=== PATIENT | female | born 1985 | race Caucasian/White ===

== ENCOUNTER → 2016-10-21 | Outpatient (CLI) | payer OTHER ==
--- NOTE | 2016-10-21 11:11 | XR ---
Right shoulder HISTORY: Injury and pain Multiplanar multisequence imaging obtained through the right shoulder. No comparisons Bone mineralization, joint spaces and alignment are maintained. Right lung apex as visualized is norm al. IMPRESSION: No fracture or dislocation.
== END | disposition home or self-care (01) ==
LOC: RADXRMAIN 10:51
PROVIDERS: ATTEND Emergency Medicine
DX: S43.401A Unspecified sprain of right shoulder joint, initial encounter (principal)

== ENCOUNTER → 2020-08-27 | Outpatient (CLI) | payer BC | END | disposition home or self-care (01) | LOC: LABWHC1 15:40 | PROVIDERS: ATTEND Obstetrics & Gynecology | DX: O20.0 Threatened abortion (principal) | CPT/HCPCS: 36415; 84702 ==

== ENCOUNTER 2020-09-09 05:40 | Day surgery (SDC) | payer BC ==
[2020-09-04 08:51] VITALS: BMI 38.0
--- NOTE | 2020-09-04 18:25 | P.HPOB ---
History of Present Illness H&P Date: 09/04/20 Chief Complaint: Missed This patient is a pleasant 35-year-old 2 para 1 female estimated gestational age 9 weeks by dates who presented to me initially for care and ultrasound showed a empty sac with a yolk sac. Patient's beta-hCG at that time was 20,000+. Repeat ultrasound approximately 1 week later showed a persistent gestational sac but no yolk sac at this time consistent with a missed . Patient also has had some spotting. Discussed options with the patient including expectant management versus suction D&C for treatment. Patient is requesting suction D&C at this time. has otherwise been uncomplicated with the exception of tobacco use and advanced maternal age. Review of Systems Genitourinary: Reports Past Medical History Past Medical History: No Reported History History of Any Multi-Drug Resistant Organisms: None Reported Past Surgical History: Section Past Anesthesia/Blood Transfusion Reactions: Family History of Problems w/ Anesthesia Additional Past Anesthesia/Blood Transfusion Reaction / Comment(s): "Grandma cannot have anesthesia, caused breathing issues, has alot of allergies." Past Psychological History: Anxiety Smoking Status: Current every day smoker Past Alcohol Use History: None Reported Additional Past Alcohol Use History / Comment(s): Has been smoking for 18 yrs, 1PPD. Past Drug Use History: None Reported - Past Family History Mother Family Medical History: No Reported History Medications and Allergies Home Medications Medication Instructions Recorded Confirmed Type No Known Home Medications 09/04/20 09/04/20 History Allergies Allergy/AdvReac Type Severity Reaction Status Date / Time Sulfa (Sulfonamide Allergy Rash/Hives Verified 09/04/20 08:54 Antibiotics) Exam Intake and Output 09/04/20 09/04/20 09/04/20 06:59 14:59 22:59 Other: Weight 113.398 kg - OBG Physical Exam Abdomen: bowel sounds normal, no diffuse tenderness, no bruit present, no guarding noted, no hepatomegaly, no splenomegaly, no mass Vulva: both: normal Vagina: normal moisture, no discharge Cervix: no lesion, no discharge Uterus: enlarged (Uterus is approximate 6 weeks' size), normal contour Results Serial ultrasound shows an gestational sac without pole or cardiac activity. Patient's blood type is O+. Assessment and Plan Assessment: This is a pleasant 35-year-old 2 para 1 female with a missed approximately 6-7 weeks size. Patient requested suction D&C for treatment at this time. Beverly and I have discussed the surgery and risks including risks of infection, bleeding, possible uterine perforation. All the patient's questions have been answered and a written consent is obtained. (1) Missed Status: Acute Code(s): O02.1 - MISSED SNOMED Code(s): 11315519
[~2020-09-09 05:40] MED LIST: Pre Op ABX Message 1 EACH MISC MISCELLANE ONE
[2020-09-09] MEDS ORDERED: ONDANSETRON 4 MG/2 ML VIAL IVP ONE (05:55)
[2020-09-09] MEDS ORDERED: LACTATED RINGERS 1,000 ML IV SCH (05:55)
[2020-09-09] MEDS ORDERED: HYDROmorphone 0.5 MG/0.5 ML SYRINGE IVP PRN (05:55)
[2020-09-09] MEDS ORDERED: MIDAZOLAM 2 MG/2 ML VIAL IV PRN (05:55)
[2020-09-09] MEDS ORDERED: DEXAMETHASONE SOD PHOSPHATE 4 MG/ML 1 ML VIAL IV ONE (05:55)
[2020-09-09] MEDS ORDERED: LIDOCAINE 1% (10MG/ML) FOR IV START INTRADERMA PRN (05:55)
[2020-09-09 06:14] VITALS: RESP 16
[2020-09-09] MEDS ORDERED: PROPOFOL 10 MG/ML 20 ML VIAL IV ONE (06:57)
[2020-09-09] MEDS ORDERED: MIDAZOLAM 2 MG/2 ML VIAL ONE (06:57)
[2020-09-09] MEDS ORDERED: SUCCINYLCHOLINE CHLORIDE 100 MG/5 ML SYR IV ONE (06:57)
[2020-09-09] MEDS ORDERED: LIDOCAINE 1% INJ 10MG/ML (20 ML MDV) ONE (06:57)
[2020-09-09] MEDS ORDERED: KETOROLAC 15 MG/ML 1 ML VIAL ONE (06:57)
[2020-09-09] MEDS ORDERED: fentaNYL (PF) 50 MCG/ML 2 ML AMP ONE (06:57)
--- NOTE | 2020-09-09 07:26 | P.OP ---
Date of Procedure: 09/09/20 Preoperative Diagnosis: Missed Postoperative Diagnosis: Same Procedure(s) Performed: Suction D&C Anesthesia: JAVIER Surgeon: Luiz Knight Estimated Blood Loss (ml): 25 Urine output (ml): 25 Pathology: other (() Condition: stable Disposition: PACU Indications for Procedure: Please see dictated H&P for intimate details of this patient's admission. Brief summary this is a pleasant 35-year-old female with known missed who is scheduled for suction D&C this morning. Patient did have some bleeding over this weekend and passed some large clots but is uncertain if she passed tissue or not. Her bleeding had subsided. I did discuss with her the possibility that she passes the entire versus residual tissue and she wished to proceed with suction D&C either way. She and I did discuss the surgery and risks and risks of infection, bleeding, possible uterine perforation. All the patient's questions been answered written consent is obtained. Operative Findings: Patient had a small amount of retained tissue possibly consistent with just decidual tissue. Description of Procedure: This patient is taken to the operating room where she is laid in supine position. She subsequently undergoes general endotracheal anesthesia without incident. With an adequate level of anesthesia she's placed in dorsal lithotomy position. She has a vaginal perineal prep and drape. Examination under anesthesia shows a mid position uterus of normal size. Weighted speculum placed in posterior vagina. The bladder is drained for 25 mL of clear urine. This done I then grabbed the anterior lip of the cervix with an Allis clamp and gently dilate the cervix. The cervix easily dilated to allow a 9 curved suction curette into the uterine cavity. Suction is applied and a small amount of tissue is removed. This is consistent with some retained tissue however she may have had a complete . Multiple passes until no further tissue was noted. A gentle but thorough 4 quadrant curettage is done as well again no further tissue was noted. The Allis clamp was then removed. The weighted speculum was removed. Patient is awakened from anesthesia and taken to the recovery room in satisfactory condition. All counts correct 3. There are no complications.
[2020-09-09 07:31] VITALS: TEMP 97.1
[2020-09-09 08:18] VITALS: BP 131/81; PULSE 91
== END 2020-09-09 08:37 | disposition home or self-care (01) ==
LOC: OR 05:40
PROVIDERS: ATTEND Obstetrics & Gynecology
DX: O02.1 Missed abortion (principal); F41.9 Anxiety disorder, unspecified; F17.210 Nicotine dependence, cigarettes, uncomplicated; Z88.2 Allergy status to sulfonamides; Z98.891 History of uterine scar from previous surgery
CPT/HCPCS: 59820; 86900; 86901; 88305; 86850; J2250; J1100; J2405; J2001; J3010; J1885; J0330; J2704

== ENCOUNTER 2020-11-07 05:47 | Day surgery (SDC) | payer BC ==
[2020-11-04 16:02] VITALS: BMI 38.0
--- NOTE | 2020-11-06 12:41 | P.HPOB ---
History of Present Illness H&P Date: 11/06/20 Chief Complaint: High-grade cervical dysplasia This patient is a pleasant 35-year-old 2 para 1 female who initially presented to me for but subsequent a did have a miscarriage. In the process of evaluating her she had a Pap smear that showed possible high-grade dysplasia. Colposcopy confirmed REVA 3 (high-grade) dysplasia of the ectocervix. Patient now presents for LEEP excision of the ectocervix endocervix for treatment. Past Medical History Past Medical History: No Reported History History of Any Multi-Drug Resistant Organisms: None Reported Past Surgical History: Section Additional Past Surgical History / Comment(s): D & C Past Anesthesia/Blood Transfusion Reactions: Family History of Problems w/ Anesthesia Additional Past Anesthesia/Blood Transfusion Reaction / Comment(s): "Grandma cannot have anesthesia, caused breathing issues, has alot of allergies." Past Psychological History: No Psychological Hx Reported Smoking Status: Current every day smoker Past Alcohol Use History: None Reported Past Drug Use History: None Reported - Past Family History Mother Family Medical History: No Reported History Medications and Allergies Home Medications Medication Instructions Recorded Confirmed Type No Known Home Medications 11/04/20 11/04/20 History Allergies Allergy/AdvReac Type Severity Reaction Status Date / Time Sulfa (Sulfonamide Allergy Rash/Hives Verified 11/04/20 15:58 Antibiotics) Exam - OBG Physical Exam Abdomen: bowel sounds normal, no diffuse tenderness, no bruit present, no guarding noted, no hepatomegaly, no splenomegaly, no mass Vulva: both: normal Vagina: normal moisture, no discharge Cervix: no lesion, no discharge Uterus: normal size, normal contour Results Colposcopy demonstrates REVA-3 of the ectocervix Assessment and Plan Assessment: This is a pleasant 35-year-old 2 para 1 female with high-grade cervical dysplasia who presents for colposcopy with LEEP excision of the ectocervix endocervix. Patient and I have discussed this procedure and risks including risks of infection, bleeding, possible cervical incompetence in future loss. All the patient's questions are answered and a written consent is obtained. (1) High grade squamous intraepithelial lesion of cervix Status: Acute Code(s): R87.613 - HIGH GRADE INTREPITH LESION CYTO SMR CRVX (HGSIL) SNOMED Code(s): 331724063
[2020-11-07] MEDS ORDERED: DEXAMETHASONE SOD PHOSPHATE 4 MG/ML 1 ML VIAL IV ONE (06:06)
[2020-11-07] MEDS ORDERED: LACTATED RINGERS 1,000 ML IV SCH (06:06)
[2020-11-07] MEDS ORDERED: SCOPOLAMINE 1.5MG/72HR PATCH TRANSDERM ONE (06:06)
[2020-11-07] MEDS ORDERED: ONDANSETRON 4 MG/2 ML VIAL IVP ONE (06:06)
[2020-11-07] MEDS ORDERED: LIDOCAINE 1% (10MG/ML) FOR IV START INTRADERMA PRN (06:06)
[2020-11-07] MEDS ORDERED: MIDAZOLAM 2 MG/2 ML VIAL ONE (06:53)
[2020-11-07] MEDS ORDERED: PROPOFOL 10 MG/ML 20 ML VIAL IV ONE (06:53)
[2020-11-07] MEDS ORDERED: LIDOCAINE 1% INJ 10MG/ML (20 ML MDV) ONE (06:53)
[2020-11-07] MEDS ORDERED: KETOROLAC 15 MG/ML 1 ML VIAL ONE (06:53)
[2020-11-07] MEDS ORDERED: fentaNYL (PF) 50 MCG/ML 2 ML AMP ONE (06:53)
[2020-11-07] MEDS ORDERED: HYDROmorphone 0.5 MG/0.5 ML SYRINGE IVP PRN (07:00)
[2020-11-07] MEDS ORDERED: IODINE/POTASS IOD (LUGOLS) BOTTLE TOPICAL ONE (07:15)
[2020-11-07] MEDS ORDERED: FERRIC SUBSULFATE (MONSELS) JAR TOPICAL ONE (07:15)
[2020-11-07 07:33] VITALS: TEMP 08.3
--- NOTE | 2020-11-07 07:34 | P.OP ---
Date of Procedure: 11/07/20 Preoperative Diagnosis: High-grade cervical dysplasia Postoperative Diagnosis: Same Procedure(s) Performed: LEEP of the ectocervix and endocervix Anesthesia: other (LMA) Surgeon: Luiz Knight Estimated Blood Loss (ml): 5 Urine output (ml): 20 Pathology: other (Ectocervix and endocervix) Condition: stable Disposition: PACU Indications for Procedure: Please see dictated H&P for intimate details of this patient's admission. Brief summary this is a pleasant 35-year-old patient who had a high-grade Pap smear and colposcopy confirmed REVA 3 of the ectocervix. Patient I discussed treatment elected to proceed with LEEP excision the ectocervix and endocervix. Due to her wanting to have a baby in the near future time I will do my best to do a shallow excision. I did discuss the risks of this procedure including infection, bleeding, possible cervical incompetence in future loss. All the patient's questions are answered and a written consent is obtained. Operative Findings: This patient had acetowhite changes of the ectocervix is demarcated in the office Description of Procedure: This patient is taken to the operating room where she is laid in the supine position. She subsequent undergoes general anesthesia without incident. With an adequate level of anesthesia she's placed in dorsal lithotomy position. She has a vaginal perineal prep and drape. The laser speculum was placed into the vagina and the cervix is visualized. Bladder is drained for 20 mL of clear urine. Colposcopy is performed and the area of abnormality is demarcated. Using the large LEEP loop I make one pass and excise the entire transformation zone. Again this is a shallow excisions best as possible without compromising removed. A second pass is made of the endocervix with the small LEEP loop. C auterization is then done of the Endo and ectocervical margins and excellent hemostasis is noted Monsel solution is added for additional hemostasis. This done the procedure is ended. The counts are correct 3. There are no complications. Patient is awakened from anesthesia and taken to the recovery room in satisfactory condition.
[2020-11-07 07:48] VITALS: RESP 18
[2020-11-07] MEDS ORDERED: LACTATED RINGERS 1,000 ML IV ONE (08:02)
[2020-11-07 08:35] VITALS: BP 142/87; PULSE 79
== END 2020-11-07 08:50 | disposition home or self-care (01) ==
LOC: OR 05:47
PROVIDERS: ATTEND Obstetrics & Gynecology
DX: N87.1 Moderate cervical dysplasia (principal); N87.9 Dysplasia of cervix uteri, unspecified; K08.89 Other specified disorders of teeth and supporting structures; E66.9 Obesity, unspecified; F17.210 Nicotine dependence, cigarettes, uncomplicated; Z88.2 Allergy status to sulfonamides; Z87.59 Personal history of other complications of pregnancy, childbirth and the puerperium; Z98.890 Other specified postprocedural states; Z84.89 Family history of other specified conditions; Z68.37 Body mass index [BMI] 37.0-37.9, adult
CPT/HCPCS: 81025; 88305; 88307; 57461; J2250; J1100; J2405; J2001; J3010; J1885; J2704

== ENCOUNTER 2022-02-24 05:44 | Inpatient (IN) | payer BC ==
--- NOTE | 2022-02-23 07:46 | P.HPOB ---
History of Present Illness H&P Date: 02/23/22 Chief Complaint: Repeat CS and tubal ligation. This patient is a pleasant 36 yr female EDC 03/03/[birth year]22 estimated gestational age 39 0/7 weeks who presents to L&D for repeat section and also requesting permanent sterilization. has been complicated by insulin- dependent gestational diabetes and advanced for maternal age. Patient had normal genetic testing and Level III ultrasound. Diabetes has been managed by [facility]. Previous section, desires repeat plus tubal ligation. Review of Systems Genitourinary: Reports Menstruation: Reports amenorrhea Past Medical History Past Medical History: No Reported History History of Any Multi-Drug Resistant Organisms: None Reported Past Surgical History: Section Additional Past Surgical History / Comment(s): D & C Past Anesthesia/Blood Transfusion Reactions: Family History of Problems w/ Anesthesia Additional Past Anesthesia/Blood Transfusion Reaction / Comment(s): "Grandma cannot have anesthesia, caused breathing issues, has alot of allergies." Past Psychological History: No Psychological Hx Reported Smoking Status: Current every day smoker Past Alcohol Use History: None Reported Past Drug Use History: None Reported - Past Family History Mother Family Medical History: No Reported History Medications and Allergies Allergies Allergy/AdvReac Type Severity Reaction Status Date / Time Sulfa (Sulfonamide Allergy Rash/Hives Verified 11/04/20 15:58 Antibiotics) Exam - OBG Physical Exam Abdomen: bowel sounds normal, no diffuse tenderness, no bruit present, no guarding noted, no hepatomegaly, no splenomegaly, no mass Vulva: both: normal Vagina: normal moisture, no discharge Cervix: no lesion, no discharge Uterus: enlarged Adnexa: both: normal Anus/Rectum: normal perianal skin, no rectal mass, no hemorrhoids, heme negative Results labs: O positive, Rubella Immune, [id number] negative, glucola 253, Materni T21 46X,X, GBS negative. Normal Level III and growth ultrasounds. Last ultrasound was breech. Assessment and Plan Assessment: This is a pleasant 36 yr female 39 weeks with insulin dependent GDM and elderly with previous section and requesting permanent sterilization. Plan is repeat section and bilateral partial salpingectomy. Patient and I have discussed this surgery and risks: infection, bleeding, possible injury to bowel, bladder, vessels, and/or other organs. Risk of DVT/PE. We discussed that a tubal ligation is permanent, however failure rate of ~<02/1000 procedures done. All of her questions were answered and a written consent obtained. (1) 39 weeks gestation of Status: Acute Code(s): Z3A.39 - 39 WEEKS GESTATION OF SNOMED Code(s): 49522375 (2) Insulin dependent gestational diabetes mellitus, antepartum Status: Acute Code(s): AAA6368 - SNOMED Code(s): 19198658 (3) Elderly multigravida Status: Acute Code(s): O09.529 - SUPERVISION OF ELDERLY MULTIGRAVIDA, UNSPECIFIED TRIMESTER SNOMED Code(s): 975220990 (4) Previous delivery affecting Status: Acute Code(s): O34.219 - MATERNAL CARE FOR UNSP TYPE SCAR FROM PREVIOUS DEL SNOMED Code(s): 730240165 (5) Family planning Status: Acute Code(s): Z30.09 - ENCOUNTER FOR OTH GENERAL CNSL AND ADVICE ON CONTRACEPTION SNOMED Code(s): 432462613
[2022-02-24] MEDS ORDERED: CITRIC ACID-SODIUM CITRATE 15 ML CUP PO ONE (06:09)
[2022-02-24] MEDS ORDERED: LACTATED RINGERS 1,000 ML IV ONE (06:09)
[2022-02-24] MEDS ORDERED: LACTATED RINGERS 1,000 ML IV SCH (06:09)
[2022-02-24 06:31] LABS: Glucose,Whole Blood 111 mg/dL (75-99)
[2022-02-24 06:42] LABS: Basophils # (A) 0.1 k/uL (0-0.2); Basophils % (A) 0 %; Eosinophils # (A) 0.1 k/uL (0-0.7); Eosinophils % (A) 1 %; HCT 39.8 % (34.0-46.0); HGB 12.6 gm/dL (11.4-16.0); Lymphocytes # (A) 2.8 k/uL (1.0-4.8); Lymphocytes % (A) 20 %; MCH 28.5 pg (25.0-35.0); MCHC 31.6 g/dL (31.0-37.0); MCV 90.1 fL (80.0-100.0); Mean Platelet Volume 10.5; Monocytes # (A) 0.7 k/uL (0-1.0); Monocytes % (A) 5 %; Neutrophils # (A) 10.6 k/uL (1.3-7.7); Neutrophils % (A) 74 %; Platelet Count 186 k/uL (150-450); RBC 4.41 m/uL (3.80-5.40); RDW 14.3 % (11.5-15.5); WBC 14.4 k/uL (3.8-10.6)
[2022-02-24] MEDS ORDERED: PHENYLEPHRINE-0.9% NACL SYG 1,000 MCG/10 ML SYRINGE ONE (07:42)
[2022-02-24] MEDS ORDERED: NALBUPHINE 10 MG/ML (1 ML AMP) ONE (07:42)
[2022-02-24] MEDS ORDERED: ONDANSETRON 4 MG/2 ML VIAL ONE (07:42)
[2022-02-24] MEDS ORDERED: ePHEDrine 50 MG/ML 1 ML VIAL ONE (07:42)
[2022-02-24] MEDS ORDERED: KETOROLAC 15 MG/ML 1 ML VIAL ONE (07:42)
[2022-02-24] MEDS ORDERED: MORPHINE SULFATE (PF) 0.3 MG/0.3 ML SYR ONE (07:42)
[2022-02-24] MEDS ORDERED: OXYTOCIN 30 UNITS/500 ML NS BAG IV ONE (07:42)
--- NOTE | 2022-02-24 08:37 | P.OP ---
Date of Procedure: 02/24/22 Preoperative Diagnosis: #1: 39-0/7 week intrauterine . #2: Insulin-dependent gestational diabetes. #3: Elderly multigravida #4: Previous section desires repeat. #5: Multi parity desires permanent sterilization Postoperative Diagnosis: Same Procedure(s) Performed: Repeat low transverse section and bilateral partial salpingectomy. Anesthesia: spinal Surgeon: Luiz Knight Outside Upholsterer #1: Jess Hung Estimated Blood Loss (ml): 600 Pathology: other (Placenta and bilateral fallopian tube segments) Disposition: floor Indications for Procedure: Please see dictated H&P for intimate details of this patient's admission. Brief summary this pleasant 36-year-old 3 para 1 female 39-0/7 weeks gestation admitted to labor and delivery for repeat section and also requesting permanent sterilization. Patient understands this surgery and risks and risks of infection, bleeding, possible injury bowel, bladder, vessels, and/or other organs. She also understands a tubal ligation is considered permanent. All the patient's questions are answered and a written consent is obtained. Operative Findings: This is a vigorous viable female infant Apgars 9 and 9 delivery time is 0800 hours. Description of Procedure: This patient has a Collins catheter placed to straight drain. She is subsequently taken to the operating room where she sat up and spinal anesthetic is administered without incident. With an adequate level of anesthesia she has abdominal prep and drape. Scalpels and taken Pfannenstiel incision is made through the previous incision. A second scalpel is taken down the fascia and the fascia scored with a knife. Fascial incision extended bilaterally using the Bravo scissors. Fascia is then dissected off the rectus muscles sharply. Rectus muscles are the peritoneum identified and entered sharply. Peritoneal incision extended superior and inferior without difficulty. Bladder blade is then placed. Bladder peritoneum was taken sharply off the lower uterine segment. Scalpels taken low transverse uterine incision is made. Using a hemostat I into the uterine cavity bluntly is loss of copious amount of clear fluid. is in the vertex presentation With fundal pressure we deliver the 's head. Mouth and nares are bulb suctioned. There is no evidence of a nuchal cord. With more fundal pressure we have delivery the rest this infant's body. This is a vigorous viable female infant Apgars are 9 and 9 delivery time is 0800 hours. After delivery of the the umbilical cord is doubly clamped and cut appears to be trivascular. The placenta is then manually extracted intact. Uterus is then externalized uterine incision demarcated with Martinez clamps. Uterine incision is closed using 0 Vicryl running locked fashion 2 layers. Excellent hemostasis is noted. Then turned my attention to the left fallopian tube and I grasped approximately 4 cm from the cornual insertion. Using Bovie cautery a small window is made to the mesial salpinx. Using a 2-0 silk I doubly ligate a 1-2 cm segment of the tube. This is excised and handed off to pathology. Cauterization is done of the tubal ends. Risks low but of bleeding at the distal portion of additional stitches placed and excellent hemostasis is noted. Then turned my attention to the right fallopian tube and using a similar technique similar results. With this done excess fluid is removed from the pelvis uterus placed back into the abdomen. Final inspection of the uterine incision and the fallopian tube filled to be hemostatic. Parietal peritoneum was closed using 0 Vicryl. Rectus muscles reapproximated Vicryl interrupted fashion. Fascial incision is closed using 0 PDS. Fascial incision is intact and hemostatic. Subcutaneous tissues and closed using a 3-0 Vicryl. Skin is and closed using angelia. All counts are correct 3. There are no complications. Infant and mother stable delivery room.
[2022-02-24] MEDS ORDERED: ONDANSETRON 4 MG/2 ML VIAL IVP PRN (09:31)
[2022-02-24] MEDS ORDERED: LANOLIN CREAM 5 GM TUBE TOPICAL PRN (09:31)
[2022-02-24] MEDS ORDERED: ZOLPIDEM 5 MG TAB PO PRN (09:31)
[2022-02-24] MEDS ORDERED: diphenhydrAMINE 50 MG/ML 1 ML VIAL IVP PRN (09:31)
[2022-02-24] MEDS ORDERED: SIMETHICONE 80 MG CHEWABLE PO PRN (09:31)
[2022-02-24] MEDS ORDERED: NALOXONE 0.4 MG/ML 1 ML VIAL IV PRN (09:31)
[2022-02-24] MEDS ORDERED: OXYTOCIN 30 UNITS/500 ML NS 30 UNIT in SALINE 1 500ML.BAG IV SCH (09:31)
[2022-02-24] MEDS ORDERED: METOCLOPRAMIDE 5 MG/ML 2 ML VIAL IVP PRN (09:31)
[2022-02-24] MEDS: ACETAMINOPHEN TAB 500 MG TAB PO SCH ×2 (09:58→23:01)
[2022-02-24] MEDS: SENNOSIDES-DOCUSATE SODIUM 1 EACH TAB PO SCH ×2 (09:59→21:15)
[2022-02-24] MEDS: KETOROLAC 15 MG/ML 1 ML VIAL IVP SCH (13:57)
[2022-02-24] MEDS: IBUPROFEN 600 MG TAB PO SCH ×2 (17:23→23:01)
[2022-02-25] MEDS: KETOROLAC 15 MG/ML 1 ML VIAL IVP SCH ×2 (03:19→07:27)
[2022-02-25] MEDS: IBUPROFEN 600 MG TAB PO SCH ×5 (04:46→20:23)
[2022-02-25] MEDS: diphenhydrAMINE 25 MG CAP PO PRN ×3 (05:50→18:45)
[2022-02-25] MEDS: ACETAMINOPHEN TAB 500 MG TAB PO SCH ×5 (05:50→18:44)
--- NOTE | 2022-02-25 06:13 | P.PNOBGPC ---
Subjective - Subjective Patient reports: Reports appetite normal, Reports voiding normally, Reports pain well controlled, Reports ambulating normally : doing well Objective - Vital Signs Latest vital signs: Vital Signs Temp Pulse Resp BP Pulse Ox 02/25/22 03:31 98.5 F 88 16 122/82 02/24/22 23:56 98.2 F 97 16 118/71 96 02/24/22 23:55 83 19 02/24/22 21:55 97.8 F 83 19 123/67 95 02/24/22 20:00 98.6 F 81 15 101/55 95 02/24/22 16:00 97.6 F 74 16 117/66 98 02/24/22 11:00 97.8 F 91 16 116/58 98 02/24/22 10:32 97.8 F 76 16 109/61 97 02/24/22 10:01 93 16 96/52 95 02/24/22 09:32 85 17 103/51 95 02/24/22 09:31 96 02/24/22 09:17 85 17 114/55 96 02/24/22 09:02 82 17 100/58 96 02/24/22 08:47 89 17 108/61 96 02/24/22 08:32 97.8 F 75 17 80/40 96 02/24/22 06:58 97.9 F 103 H 16 97 Intake and Output 02/24/22 02/24/22 02/25/22 14:59 22:59 06:59 Intake Total 700 480 Output Total 850 300 Balance -150 180 Intake: IV 700 Oral 480 Output: Urine 100 300 Uretheral (Collins) 300 Estimated Blood Loss 600 Output, Quantitative 150 Blood Loss Other: Voiding Method Indwelling Catheter Indwelling Catheter # Voids 1 # Bowel Movements 150 # Emeses 1 - Exam Lungs: bilateral: normal Chest: Normal S1, Normal S2 Extremities: Present: normal Abdomen: Present: normal appearance, soft. Absent: distention, tenderness Incision: Present: normal, dry, intact Uterus: Present: normal, firm - Labs Labs: Abnormal Lab Results - Last 24 Hours (Table) 02/24/22 02/24/22 02/24/22 Range/Units 06:23 06:30 06:30 WBC 14.4 H (3.8-10.6) k/uL Neutrophils # 10.6 H (1.3-7.7) k/uL POC Glucose (mg/dL) 111 H (75-99) mg/dL Hemoglobin A1c 6.3 H (0.0-6.0) % Assessment and Plan Assessment: Postoperative day #1. Patient is resting without complaints. Vital signs are stable she is afebrile. Uterus is firm nontender and her incision is intact and dry. My impression this is a normal course. Plan is to allow the patient to shower, check CBC, encourage ambulation, continue routine postoperative care (1) 39 weeks gestation of Current Visit: No Status: Acute Code(s): Z3A.39 - 39 WEEKS GESTATION OF SNOMED Code(s): 32610615 (2) Insulin dependent gestational diabetes mellitus, antepartum Current Visit: No Status: Acute Code(s): APV7359 - SNOMED Code(s): 83992023 (3) Elderly multigravida Current Visit: No Status: Acute Code(s): O09.529 - SUPERVISION OF ELDERLY MULTIGRAVIDA, UNSPECIFIED TRIMESTER SNOMED Code(s): 257844994 (4) Previous delivery affecting Current Visit: No Status: Acute Code(s): O34.219 - MATERNAL CARE FOR UNSP TYPE SCAR FROM PREVIOUS DEL SNOMED Code(s): 113202001 (5) Family planning Current Visit: No Status: Acute Code(s): Z30.09 - ENCOUNTER FOR OTH GENERAL CNSL AND ADVICE ON CONTRACEPTION SNOMED Code(s): 173817214
--- NOTE | 2022-02-25 07:36 | P.PN ---
Progress Note - Text Progress Note Date: 02/25/22 This is a 36-year-old lady postop day #1 status post with spinal anesthesia and Duramorph. The patient's pain is well controlled however she feels mild itching. She denies any paresthesia or weakness in the lower extremities. She denies any headache. The patient was able to ambulate with no problems.
[2022-02-25 07:38] LABS: Basophils # (A) 0.1 k/uL (0-0.2); Basophils % (A) 1 %; Eosinophils # (A) 0.2 k/uL (0-0.7); Eosinophils % (A) 1 %; HCT 35.7 % (34.0-46.0); HGB 11.2 gm/dL (11.4-16.0); Lymphocytes # (A) 1.9 k/uL (1.0-4.8); Lymphocytes % (A) 16 %; MCH 28.4 pg (25.0-35.0); MCHC 31.3 g/dL (31.0-37.0); MCV 90.7 fL (80.0-100.0); Mean Platelet Volume 10.4; Monocytes # (A) 0.7 k/uL (0-1.0); Monocytes % (A) 6 %; Neutrophils % (A) 75 %; Platelet Count 166 k/uL (150-450); RBC 3.94 m/uL (3.80-5.40); RDW 14.2 % (11.5-15.5); WBC 11.9 k/uL (3.8-10.6)
[2022-02-25] MEDS: SENNOSIDES-DOCUSATE SODIUM 1 EACH TAB PO SCH ×2 (08:43→20:25)
[2022-02-26] MEDS: ACETAMINOPHEN TAB 500 MG TAB PO SCH ×2 (00:27→07:29)
[2022-02-26] MEDS: IBUPROFEN 600 MG TAB PO SCH ×2 (02:26→09:39)
--- NOTE | 2022-02-26 05:59 | P.PNOBGPC ---
Subjective - Subjective Patient reports: Reports appetite normal, Reports voiding normally, Reports pain well controlled, Reports ambulating normally : doing well Objective - Vital Signs Latest vital signs: Vital Signs Temp Pulse Resp BP Pulse Ox 02/26/22 00:00 97.9 F 76 16 120/78 98 02/25/22 15:00 98.6 F 79 20 99/60 97 02/25/22 08:00 98.3 F 89 16 113/67 Intake and Output 02/25/22 02/25/22 02/26/22 14:59 22:59 06:59 Other: # Voids 1 1 - Exam Lungs: bilateral: normal Chest: Normal S1, Normal S2 Extremities: Present: normal Abdomen: Present: normal appearance, soft. Absent: distention, tenderness Incision: Present: normal, dry, intact Uterus: Present: normal, firm - Labs Labs: Abnormal Lab Results - Last 24 Hours (Table) 02/25/22 Range/Units 07:22 WBC 11.9 H (3.8-10.6) k/uL Hgb 11.2 L (11.4-16.0) gm/dL Neutrophils # 9.0 H (1.3-7.7) k/uL Assessment and Plan Assessment: Postoperative day #2. Patient is resting without complaints. Vital signs are stable she's afebrile. Uterus is firm nontender and she is having normal lochia. Her incision is intact and dry. CBC yesterday was normal. Patient's tolerating regular diet, urinating, ambulating without difficulty. My impression is that this is a normal postoperative course. Plan is to continue routine postoperative care discharge home later today. Of note patient's hemoglobin A1c was 6.3 and we did discuss about the need for outpatient follow- up of her gestational diabetes possible pre-gestational. (1) 39 weeks gestation of Current Visit: No Status: Acute Code(s): Z3A.39 - 39 WEEKS GESTATION OF SNOMED Code(s): 89038700 (2) Insulin dependent gestational diabetes mellitus, antepartum Current Visit: No Status: Acute Code(s): USE9278 - SNOMED Code(s): 68383388 (3) Elderly multigravida Current Visit: No Status: Acute Code(s): O09.529 - SUPERVISION OF ELDERLY MULTIGRAVIDA, UNSPECIFIED TRIMESTER SNOMED Code(s): 433558982 (4) Previous delivery affecting Current Visit: No Status: Acute Code(s): O34.219 - MATERNAL CARE FOR UNSP TYPE SCAR FROM PREVIOUS DEL SNOMED Code(s): 603019111 (5) Family planning Current Visit: No Status: Acute Code(s): Z30.09 - ENCOUNTER FOR OTH GENERAL CNSL AND ADVICE ON CONTRACEPTION SNOMED Code(s): 235749766
--- NOTE | 2022-02-26 06:04 | P.DS ---
Providers Date of admission: 02/24/22 05:44 Expected date of discharge: 02/26/22 Attending physician: Luiz Knight Primary care physician: Stated None - Discharge Diagnosis(es) (1) 39 weeks gestation of Current Visit: No Status: Acute (2) Insulin dependent gestational diabetes mellitus, antepartum Current Visit: No Status: Acute (3) Elderly multigravida Current Visit: No Status: Acute (4) Previous delivery affecting Current Visit: No Status: Acute (5) Family planning Current Visit: No Status: Acute Hospital Course: Please see dictated H&P and operative note on this patient's admission and delivery. In brief summary this is a 36-year-old 3 para 1 female 39-0/7 weeks gestation who is admitted to labor and delivery for elective repeat section and permanent sterilization secondary to previous section and gestational diabetes. Patient is admitted she undergoes repeat low transverse section for viable female infant. Please see dictated operative note. Postoperatively the patient does well and on postoperative and 2 spell to be stable for discharge home follow up with me in 1-2 weeks for an incision check. Procedures: Repeat low transverse section and bilateral partial salpingectomy Plan - Discharge Summary New Discharge Prescriptions: New Ibuprofen [Motrin] 600 mg PO Q6H #40 tab No Action Aspirin 81 mg PO DAILY Pnv No.95/Ferrous Fum/Folic AC [ Multivitamin Tablet] 1 each PO DAILY Insulin Detemir [Levemir Flextouch Pen] 30 unit SQ DAILY Insulin Aspart [NovoLOG Flexpen] See Protocol SQ AC-BID Discharge Medication List Aspirin 81 mg PO DAILY 02/24/22 [History] Insulin Aspart [NovoLOG Flexpen] See Protocol SQ AC-BID 02/24/22 [History] Insulin Detemir [Levemir Flextouch Pen] 30 unit SQ DAILY 02/24/22 [History] Pnv No.95/Ferrous Fum/Folic AC [ Multivitamin Tablet] 1 each PO DAILY 02/24/22 [History] Ibuprofen [Motrin] 600 mg PO Q6H #40 tab 02/26/22 [Rx] Follow up Appointment(s)/Referral(s): Luiz Knight MD [STAFF PHYSICIAN] - 04/08/22 10:45 am (Please see me for an incision check on March 10 @1:30pm) Patient Instructions/Handouts: (DC) Activity/Diet/Wound Care/Special Instructions: No heavy lifting or strenuous activities for 6 weeks. Please call if any fever, chills, excessive vaginal bleeding, and/or abdominal pain. Discharge Disposition: HOME SELF-CARE
[2022-02-26] MEDS: SENNOSIDES-DOCUSATE SODIUM 1 EACH TAB PO SCH (07:30)
[2022-02-26 08:41] VITALS: BP 131/80; PULSE 88; RESP 18; TEMP 98
== END 2022-02-26 10:25 | disposition home or self-care (01) | DRG 785 ==
LOC: 4FBP 05:44
PROVIDERS: ADMIT Obstetrics & Gynecology; ATTEND Obstetrics & Gynecology
PROC: 0UB70ZZ Excision of Bilateral Fallopian Tubes, Open Approach (ICD-10-PCS; 2022-02-24)
PROC: 10D00Z1 Extraction of Products of Conception, Low, Open Approach (ICD-10-PCS; principal; 2022-02-24 08:00)
DX: O24.424 Gestational diabetes mellitus in childbirth, insulin controlled (principal); F17.200 Nicotine dependence, unspecified, uncomplicated; O34.211 Maternal care for low transverse scar from previous cesarean delivery; Z30.2 Encounter for sterilization; O99.334 Smoking (tobacco) complicating childbirth; Z37.0 Single live birth; Z3A.39 39 weeks gestation of pregnancy
CPT/HCPCS: 83036; 85025; 86850; 86900; 86901; 88302; 88307

== ENCOUNTER 2022-03-26 00:09 | Emergency (ER) | payer BC ==
[2022-03-26 00:28] VITALS: BP 117/65; PULSE 82; RESP 16; TEMP 98.2
[2022-03-26] MEDS ORDERED: SODIUM CHLORIDE 0.9% 500 ML 500 ML IV STA (01:30)
--- NOTE | 2022-03-26 01:35 | ED ---
Abdominal Pain HPI - General Chief Complaint: Abdominal Pain Stated Complaint: Abd Pain Time Seen by Provider: 03/26/22 01:09 Source: patient Mode of arrival: ambulatory Limitations: no limitations - History of Present Illness Initial Comments: This patient is a 36-year-old woman approximately 1 month , who presents with complaint of right upper quadrant abdominal pain. She states that it came on around 10 PM tonight while she was watching TV. She had eaten pizza approximately 2 and half hours earlier. The patient states that the pain r adiates to the back, is constant aching and is severe. She has not noted worsening or relieving factors. MD Complaint: abdominal pain -: hour(s) Location: RUQ Radiation: back Migration to: no migration Severity: severe Quality: aching Consistency: constant Improves With: nothing Worsens With: nothing Associated Symptoms: nausea - Related Data Home Medications Medication Instructions Recorded Confirmed Aspirin 81 mg PO DAILY 02/24/22 02/24/22 Insulin Aspart [NovoLOG Flexpen] See Protocol SQ AC-BID 02/24/22 02/24/22 Insulin Detemir [Levemir Flextouch 30 unit SQ DAILY 02/24/22 02/24/22 Pen] Pnv No.95/Ferrous Fum/Folic AC 1 each PO DAILY 02/24/22 02/24/22 [ Multivitamin Tablet] Previous Rx's Medication Instructions Recorded Ibuprofen [Motrin] 600 mg PO Q6H #40 tab 02/26/22 Allergies Allergy/AdvReac Type Severity Reaction Status Date / Time Sulfa (Sulfonamide Allergy Rash/Hives Verified 03/26/22 00:28 Antibiotics) Review of Systems ROS Statement: Those systems with pertinent positive or pertinent negative responses have been documented in the HPI. ROS Other: All systems not noted in ROS Statement are negative. Constitutional: Denies: fever, chills Respiratory: Denies: cough, dyspnea Cardiovascular: Denies: chest pain, palpitations, edema Gastrointestinal: Reports: abdominal pain, nausea. Denies: vomiting, diarrhea, constipation, melena, hematochezia Genitourinary: Denies: urgency, dysuria, hematuria Musculoskeletal: Denies: back pain Skin: Denies: rash Neurological: Denies: headache, weakness Past Medical History Past Medical History: No Reported History History of Any Multi-Drug Resistant Organisms: None Reported Past Surgical History: Section Additional Past Surgical History / Comment(s): D & C Past Anesthesia/Blood Transfusion Reactions: Family History of Problems w/ Anesthesia Additional Past Anesthesia/Blood Transfusion Reaction / Comment(s): "Grandma cannot have anesthesia, caused breathing issues, has alot of allergies." Past Psychological History: No Psychological Hx Reported Smoking Status: Current every day smoker Past Alcohol Use History: None Reported Past Drug Use History: None Reported - Past Family History Mother Family Medical History: No Reported History General Exam Limitations: no limitations General appearance: alert, in no apparent distress Head exam: Present: atraumatic, normocephalic Eye exam: Present: normal appearance. Absent: scleral icterus, conjunctival injection Neck exam: Present: normal inspection Respiratory exam: Present: normal lung sounds bilaterally. Absent: respiratory distress, wheezes, rales, rhonchi, stridor Cardiovascular Exam: Present: regular rate, normal rhythm, normal heart sounds. Absent: systolic murmur, diastolic murmur, rubs, gallop GI/Abdominal exam: Present: soft, tenderness, guarding. Absent: distended, rebound, rigid, mass, pulsatile mass, hernia Extremities exam: Present: normal inspection, normal capillary refill. Absent: pedal edema, calf tenderness Back exam: Present: normal inspection. Absent: CVA tenderness (R), CVA tenderness (L) Neurological exam: Present: alert Skin exam: Present: warm, dry, intact, normal color. Absent: rash Course Vital Signs 03/26/22 00:25 Temperature 98.2 F Pulse Rate 82 Respiratory 16 Rate Blood Pressure 117/65 O2 Sat by Pulse 98 Oximetry Medical Decision Making - Lab Data Result diagrams: 03/26/22 01:50 03/26/22 01:50 Lab Results 03/26/22 03/26/22 03/26/22 Range/Units 01:50 01:50 01:50 WBC 9.6 (3.8-10.6) k/uL RBC 4.75 (3.80-5.40) m/uL Hgb 13.9 (11.4-16.0) gm/dL Hct 42.4 (34.0-46.0) % MCV 89.2 (80.0-100.0) fL MCH 29.2 (25.0-35.0) pg MCHC 32.7 (31.0-37.0) g/dL RDW 14.3 (11.5-15.5) % Plt Count 267 (150-450) k/uL MPV 8.4 Neutrophils % 64 % Lymphocytes % 25 % Monocytes % 5 % Eosinophils % 4 % Basophils % 1 % Neutrophils # 6.2 (1.3-7.7) k/uL Lymphocytes # 2.4 (1.0-4.8) k/uL Monocytes # 0.5 (0-1.0) k/uL Eosinophils # 0.4 (0-0.7) k/uL Basophils # 0.1 (0-0.2) k/uL Sodium 139 (137-145) mmol/L Potassium 4.9 (3.5-5.1) mmol/L Chloride 109 H (98-107) mmol/L Carbon Dioxide 25 (22-30) mmol/L Anion Gap 5 mmol/L BUN 13 (7-17) mg/dL Creatinine 0.79 (0.52-1.04) mg/dL Est GFR (CKD-EPI)AfAm >90 (>60 ml/min/1.73 sqM) Est GFR (CKD-EPI)NonAf >90 (>60 ml/min/1.73 sqM) Glucose 127 H (74-99) mg/dL Calcium 9.2 (8.4-10.2) mg/dL Total Bilirubin 0.6 (0.2-1.3) mg/dL AST 50 H (14-36) U/L ALT 53 H (4-34) U/L Alkaline Phosphatase 61 (38-126) U/L C-Reactive Protein 0.8 (<1.0) mg/dL Total Protein 7.4 (6.3-8.2) g/dL Albumin 4.4 (3.5-5.0) g/dL Amylase 41 (30-110) U/L Lipase 66 (23-300) U/L Urine Color Yellow Urine Appearance Cloudy H (Clear) Urine pH 6.0 (5.0-8.0) Ur Specific [place] 1.029 (1.001-1.035) Urine Protein Trace H (Negative) Urine Glucose (UA) Negative (Negative) Urine Ketones Negative (Negative) Urine Blood Small H (Negative) Urine Nitrite Negative (Negative) Urine Bilirubin Negative (Negative) Urine Urobilinogen 2.0 (<2.0) mg/dL Ur Leukocyte Esterase Small H (Negative) Urine RBC 2 (0-5) /hpf Urine WBC 12 H (0-5) /hpf Ur Squamous Epith Cells 8 H (0-4) /hpf Amorphous Sediment Rare H (None) /hpf Urine Bacteria Rare H (None) /hpf Urine Mucus Few H (None) /hpf Urine HCG, Qual (Not Detectd) 03/26/22 Range/Units 01:50 WBC (3.8-10.6) k/uL RBC (3.80-5.40) m/uL Hgb (11.4-16.0) gm/dL Hct (34.0-46.0) % MCV (80.0-100.0) fL MCH (25.0-35.0) pg MCHC (31.0-37.0) g/dL RDW (11.5-15.5) % Plt Count (150-450) k/uL MPV Neutrophils % % Lymphocytes % % Monocytes % % Eosinophils % % Basophils % % Neutrophils # (1.3-7.7) k/uL Lymphocytes # (1.0-4.8) k/uL Monocytes # (0-1.0) k/uL Eosinophils # (0-0.7) k/uL Basophils # (0-0.2) k/uL Sodium (137-145) mmol/L Potassium (3.5-5.1) mmol/L Chloride (98-107) mmol/L Carbon Dioxide (22-30) mmol/L Anion Gap mmol/L BUN (7-17) mg/dL Creatinine (0.52-1.04) mg/dL Est GFR (CKD-EPI)AfAm (>60 ml/min/1.73 sqM) Est GFR (CKD-EPI)NonAf (>60 ml/min/1.73 sqM) Glucose (74-99) mg/dL Calcium (8.4-10.2) mg/dL Total Bilirubin (0.2-1.3) mg/dL AST (14-36) U/L ALT (4-34) U/L Alkaline Phosphatase (38-126) U/L C-Reactive Protein (<1.0) mg/dL Total Protein (6.3-8.2) g/dL Albumin (3.5-5.0) g/dL Amylase (30-110) U/L Lipase (23-300) U/L Urine Color Urine Appearance (Clear) Urine pH (5.0-8.0) Ur Specific [place] (1.001-1.035) Urine Protein (Negative) Urine Glucose (UA) (Negative) Urine Ketones (Negative) Urine Blood (Negative) Urine Nitrite (Negative) Urine Bilirubin (Negative) Urine Urobilinogen (<2.0) mg/dL Ur Leukocyte Esterase (Negative) Urine RBC (0-5) /hpf Urine WBC (0-5) /hpf Ur Squamous Epith Cells (0-4) /hpf Amorphous Sediment (None) /hpf Urine Bacteria (None) /hpf Urine Mucus (None) /hpf Urine HCG, Qual Not Detected (Not Detectd) Disposition Clinical Impression: Biliary colic Disposition: HOME SELF-CARE Condition: Good Instructions (If sedation given, give patient instructions): Biliary Colic (ED), Low Fat Diet (ED) Is patient prescribed a controlled substance at d/c from ED?: No Referrals: None,Stated [Primary Care Provider] - 1-2 days Meagan Salinas MD [STAFF PHYSICIAN] - 1-2 days Time of Disposition: 04:50
[2022-03-26 02:12] LABS: Basophils # (A) 0.1 k/uL (0-0.2); Basophils % (A) 1 %; Eosinophils # (A) 0.4 k/uL (0-0.7); Eosinophils % (A) 4 %; HCT 42.4 % (34.0-46.0); HGB 13.9 gm/dL (11.4-16.0); Lymphocytes # (A) 2.4 k/uL (1.0-4.8); Lymphocytes % (A) 25 %; MCH 29.2 pg (25.0-35.0); MCHC 32.7 g/dL (31.0-37.0); MCV 89.2 fL (80.0-100.0); Mean Platelet Volume 8.4; Monocytes # (A) 0.5 k/uL (0-1.0); Monocytes % (A) 5 %; Neutrophils # (A) 6.2 k/uL (1.3-7.7); Neutrophils % (A) 64 %; Platelet Count 267 k/uL (150-450); RBC 4.75 m/uL (3.80-5.40); RDW 14.3 % (11.5-15.5); WBC 9.6 k/uL (3.8-10.6)
[2022-03-26 02:31] LABS: ALT 53 U/L (4-34); African American GFR (CKD) >90 (>60 ml/min/1.73 sqM); Amylase 41 U/L (30-110); Anion Gap 5 mmol/L; Blood Urea Nitrogen 13 mg/dL (7-17); C Reactive Protein 0.8 mg/dL (<1.0); Calcium 9.2 mg/dL (8.4-10.2); Carbon Dioxide 25 mmol/L (22-30); Chloride 109 mmol/L (98-107); Glucose 127 mg/dL (74-99); Lipase 66 U/L (23-300); Non-African American GFR(CKD) >90 (>60 ml/min/1.73 sqM); Sodium 139 mmol/L (137-145)
[2022-03-26 02:42] LABS: AST 50 U/L (14-36); Albumin 4.4 g/dL (3.5-5.0); Potassium 4.9 mmol/L (3.5-5.1); Total Bilirubin 0.6 mg/dL (0.2-1.3); Total Protein 7.4 g/dL (6.3-8.2)
[2022-03-26 02:43] LABS: Alkaline Phosphatase 61 U/L (38-126)
[2022-03-26 02:57] LABS: Amorphous Sediment,Urine Rare /hpf; Appearance,Urine Cloudy (Clear); Bacteria,Urine Rare /hpf; Bilirubin,Urine Negative (Negative); Blood,Urine Small (Negative); Color,Urine Yellow; Glucose,Urine (UA) Negative (Negative); Ketones,Urine Negative (Negative); Leukocyte Esterase,Urine Small (Negative); Mucus,Urine Few /hpf; Nitrite,Urine Negative (Negative); Protein,Urine Trace (Negative); RBC,Urine 2 /hpf (0-5); Specific Gravity,Urine 1.029 (1.001-1.035); Squamous Epithelial Cell,Urine 8 /hpf (0-4); WBC,Urine 12 /hpf (0-5)
--- NOTE | 2022-03-26 04:44 | CT ---
EXAM: CT Abdomen and Pelvis Without Intravenous Contrast CLINICAL HISTORY: RUQ pain, Hx of and D+C TECHNIQUE: Axial computed tomography images of the abdomen and pelvis without intravenous contrast. CTDI is 18.97 mGy and DLP is 1060.4 mGy-cm. This CT exam was performed using one or more of the following dose reduction techniques: automated exposure control, adjustment of the mA and/or kV according to patient size, and/or use of iterative reconstruction technique. Coronal and sagittal reformatted images were created and reviewed. 435 images received COMPARISON: No relevant prior studies available. FINDINGS: Lung bases: Unremarkable. No mass. No consolidation. ABDOMEN: Liver: Unremarkable. Gallbladder and bile ducts: Unremarkable. No calcified stones. No ductal dilation. Pancreas: Unremarkable. No ductal dilation. Spleen: Unremarkable. No splenomegaly. Adrenals: Unremarkable. No mass. Kidneys and ureters: Unremarkable. No obstructing stones. No hydronephrosis. Stomach and bowel: Unremarkable. No obstruction. No mucosal thickening. PELVIS: Appendix: No findings to suggest acute appendicitis. Bladder: Unremarkable. No stones. Reproductive: Unremarkable as visualized. ABDOMEN and PELVIS: Intraperitoneal space: Unremarkable. No free air. No significant fluid collection. Bones/joints: No acute fracture. No dislocation. Soft tissues: Unremarkable. Vasculature: Unremarkable. No abdominal aortic aneurysm. Lymph nodes: Unremarkable. No enlarged lymph nodes. Other findings: scar without seroma or abscess. IMPRESSION: No acute findings in the abdomen or pelvis.
== END 2022-03-26 05:23 | disposition home or self-care (01) ==
LOC: EC 00:09
DX: K80.50 Calculus of bile duct without cholangitis or cholecystitis without obstruction (principal); F17.200 Nicotine dependence, unspecified, uncomplicated; Z88.2 Allergy status to sulfonamides
CPT/HCPCS: 36415; 74176; 80053; 81001; 81025; 82150; 83690; 85025; 86140; 87086; 93005; 96360; 96361; 99284

== ENCOUNTER → 2022-04-09 | Outpatient (CLI) | payer BC ==
--- NOTE | 2022-04-09 14:58 | US ---
EXAMINATION TYPE: US gallbladder DATE OF EXAM: 04/09/2022 COMPARISON: CT 2021 CLINICAL HISTORY: R10.11 RUQ pain. RUQ pain and N/V x 2 weeks EXAM MEASUREMENTS: Liver Length: 18.7 cm Gallbladder Wall: 0.2 cm CBD: 0.6 cm Right Kidney: 11.4 x 4.8 x 4.4 cm Pancreas: visualized portions wnl, limited by overlying midline bowel gas Liver: enlarged Gallbladder: cholelithiasis Evidence for sonographic Gardner's sign: no CBD: borderline dilated Right Kidney: wnl IMPRESSION: 1. Hepatomegaly. 2. Cholelithiasis.
== END | disposition home or self-care (01) ==
LOC: RADUSWWP 13:38
PROVIDERS: ATTEND Obstetrics & Gynecology
DX: R16.0 Hepatomegaly, not elsewhere classified (principal); K80.20 Calculus of gallbladder without cholecystitis without obstruction
CPT/HCPCS: 76705

== ENCOUNTER 2022-04-23 07:00 | Observation (INO) | payer BC ==
[2022-04-23] MEDS ORDERED: PANTOPRAZOLE 40 MG/10 ML VIAL IVP STA (07:27)
[2022-04-23] MEDS ORDERED: SODIUM CHLORIDE 0.9% 1,000 ML IV STA ×2 (07:27→10:36)
[2022-04-23] MEDS ORDERED: MORPHINE SULFATE 4 MG/ML SYRINGE IV STA (07:27)
[2022-04-23] MEDS ORDERED: diphenhydrAMINE 50 MG/ML 1 ML VIAL IVP STA (07:27)
[2022-04-23] MEDS ORDERED: ONDANSETRON 4 MG/2 ML VIAL IVP STA (07:27)
[2022-04-23] MEDS ORDERED: ASPIRIN 81 MG PO STA (07:33)
--- NOTE | 2022-04-23 07:33 | ED ---
General Adult HPI - General Chief complaint: Abdominal Pain Stated complaint: abd pain Time Seen by Provider: 04/23/22 07:21 Source: patient, family, RN notes reviewed, old records reviewed Mode of arrival: ambulatory Limitations: no limitations - History of Present Illness Initial comments: Patient is a 36-year-old female who presents emergency Department complaining of abdominal pain, nausea or vomiting. Patient has a history of gallstones. Was seen last month for similar complaints. States that last night, she started noticing related nausea, vomiting, as well as right upper quadrant and side abdominal pain. States she has been having nausea as well as nonbilious nonbloody emesis. Denies diarrhea. Denies fevers. Endorses some epigastric, lower substernal chest discomfort that she describes as a pressure. Denies shortness of breath. Has no cardiac history. Denies any urinary complaints. States she is not . His no other acute complaints at this time. Has not been able to follow up with surgeon as there had been no openings to do so. Symptoms have otherwise been managed effectively since her last visit.Patient states the chest pain started when her other symptoms began as well last night.No Palliative or provocative factors. - Related Data Home Medications Medication Instructions Recorded Confirmed Pnv No.95/Ferrous Fum/Folic AC 1 tab PO DAILY 02/24/22 04/23/22 [ Multivitamin Tablet] Allergies Allergy/AdvReac Type Severity Reaction Status Date / Time Sulfa (Sulfonamide Allergy Rash/Hives Verified 04/23/22 08:25 Antibiotics) Review of Systems ROS Statement: Those systems with pertinent positive or pertinent negative responses have been documented in the HPI. Review of Systems: CONST: Denies fever EYES: Denies blurry vision ENT: Denies nasal congestion C/V: Denies Chest pain RESP: Denies shortness of breath GI: Endorses abdominal pain : Denies dysuria SKIN: Denies rash. MSK: Denies joint pain. NEURO: Denies headache ROS Other: All systems not noted in ROS Statement are negative. Past Medical History Past Medical History: No Reported History History of Any Multi-Drug Resistant Organisms: None Reported Past Surgical History: Section Additional Past Surgical History / Comment(s): D & C Past Anesthesia/Blood Transfusion Reactions: Family History of Problems w/ Anesthesia Additional Past Anesthesia/Blood Transfusion Reaction / Comment(s): "Grandma cannot have anesthesia, caused breathing issues, has alot of allergies." Past Psychological History: No Psychological Hx Reported Smoking Status: Current every day smoker Past Alcohol Use History: None Reported Past Drug Use History: None Reported - Past Family History Mother Family Medical History: No Reported History General Exam - General Exam Comments Initial Comments: General: Patient is actively vomiting, and acute distress. HEAD: Normal with no signs of head trauma. EYES: PERRLA, EOMI, conjunctiva normal, no discharge. ENT: Hearing grossly intact, normal oropharynx. RESPIRATORY: Clear breath sounds bilaterally. No wheezes, rales, or rhonchi. C/V: Regular rate and rhythm. S1 and S2 auscultated, no edema, peripheral pulses 2+ and intact throughout ABD: Abdomen is soft, nondistended. Tender to palpation in the epigastric and right upper quadrant. No guarding. No peritoneal signs. No rebound tenderness. EXT: Normal range of motion, no obvious deformity SKIN: No rashes or lesions observed on exposed skin. NEURO: Alert and oriented 4. Limitations: no limitations Course Vital Signs 04/23/22 07:01 Temperature 98.1 F Pulse Rate 67 Respiratory 22 Rate Blood Pressure 117/70 O2 Sat by Pulse 96 Oximetry Medical Decision Making - Medical Decision Making Based on patient's presentation and physical exam, do believe she is likely experiencing hepatobiliary she has but cannot rule out other potential intra- abdominal or [place] issues at this time. Therefore we will obtain abdominal lab s, right upper quadrant ultrasound, EKG, chest x-ray. She'll be symptomatically treated with a GI cocktail, IV fluids, as well as given an aspirin. Patient was in agreement this plan. Vital signs are within normal limits at this time. EKG showed no signs of ischemia. Right upper quadrant ultrasound revealed cholelithiasis with wall thickening as well as a dilated common bile duct. Correlate for acute cholecystitis. There is underlying hepatomegaly. Laboratory studies are remarkable for a small leukocytosis of 13. Lactic acid is slightly elevated at 2.6 which is likely secondary to nausea and vomiting. LFTs as well as alk phos are all slightly elevated in the 100s. Troponin is undetectable. Bilirubin within normal limits. Pancreatic enzymes within normal limits. Patient is not . On reevaluation I discussed with the patient the results of her laboratory studies and imaging. I explained that She likely has acute cholecystitis. Like to start her on antibiotics and admitted to the hospital for evaluation by surgery. She was in agreement with this plan. Patient was started on Rocephin as well as Flagyl. Blood cultures were obtained and sent. I spoke with the admitting physician, Dr. Mcdonnell who was in agreement with the plan. He requested that I consult Dr. Diego of GI. I reviewed this with the patient and she was in agreement this plan. Vital signs remained within normal limits. - Lab Data Result diagrams: 04/23/22 07:43 04/23/22 07:43 Lab Results 04/23/22 04/23/22 04/23/22 Range/Units 07:43 07:43 07:43 WBC 13.4 H (3.8-10.6) k/uL RBC 4.94 (3.80-5.40) m/uL Hgb 14.1 (11.4-16.0) gm/dL Hct 43.9 (34.0-46.0) % MCV 88.8 (80.0-100.0) fL MCH 28.6 (25.0-35.0) pg MCHC 32.1 (31.0-37.0) g/dL RDW 14.1 (11.5-15.5) % Plt Count 296 (150-450) k/uL MPV 8.6 Neutrophils % 81 % Lymphocytes % 12 % Monocytes % 5 % Eosinophils % 1 % Basophils % 0 % Neutrophils # 10.8 H (1.3-7.7) k/uL Lymphocytes # 1.6 (1.0-4.8) k/uL Monocytes # 0.7 (0-1.0) k/uL Eosinophils # 0.2 (0-0.7) k/uL Basophils # 0.1 (0-0.2) k/uL PT 10.1 (9.0-12.0) sec INR 0.9 (<1.2) APTT 24.7 (22.0-30.0) sec Sodium 139 (137-145) mmol/L Potassium 4.2 (3.5-5.1) mmol/L Chloride 106 (98-107) mmol/L Carbon Dioxide 23 (22-30) mmol/L Anion Gap 10 mmol/L BUN 12 (7-17) mg/dL Creatinine 0.83 (0.52-1.04) mg/dL Est GFR (CKD-EPI)AfAm >90 (>60 ml/min/1.73 sqM) Est GFR (CKD-EPI)NonAf >90 (>60 ml/min/1.73 sqM) Glucose 141 H (74-99) mg/dL Lactic Ac Sepsis Rflx Plasma Lactic Acid Teddy (0.7-2.0) mmol/L Calcium 9.3 (8.4-10.2) mg/dL Total Bilirubin 0.4 (0.2-1.3) mg/dL AST 193 H (14-36) U/L ALT 136 H (4-34) U/L Alkaline Phosphatase 166 H (38-126) U/L Troponin I (0.000-0.034) ng/mL Total Protein 7.4 (6.3-8.2) g/dL Albumin 4.6 (3.5-5.0) g/dL Amylase 44 (30-110) U/L Lipase 51 (23-300) U/L HCG, Qual Not Detected 04/23/22 04/23/22 04/23/22 Range/Units 07:43 07:43 09:06 WBC (3.8-10.6) k/uL RBC (3.80-5.40) m/uL Hgb (11.4-16.0) gm/dL Hct (34.0-46.0) % MCV (80.0-100.0) fL MCH (25.0-35.0) pg MCHC (31.0-37.0) g/dL RDW (11.5-15.5) % Plt Count (150-450) k/uL MPV Neutrophils % % Lymphocytes % % Monocytes % % Eosinophils % % Basophils % % Neutrophils # (1.3-7.7) k/uL Lymphocytes # (1.0-4.8) k/uL Monocytes # (0-1.0) k/uL Eosinophils # (0-0.7) k/uL Basophils # (0-0.2) k/uL PT (9.0-12.0) sec INR (<1.2) APTT (22.0-30.0) sec Sodium (137-145) mmol/L Potassium (3.5-5.1) mmol/L Chloride (98-107) mmol/L Carbon Dioxide (22-30) mmol/L Anion Gap mmol/L BUN (7-17) mg/dL Creatinine (0.52-1.04) mg/dL Est GFR (CKD-EPI)AfAm (>60 ml/min/1.73 sqM) Est GFR (CKD-EPI)NonAf (>60 ml/min/1.73 sqM) Glucose (74-99) mg/dL Lactic Ac Sepsis Rflx Y Plasma Lactic Acid Teddy 2.6 H* (0.7-2.0) mmol/L Calcium (8.4-10.2) mg/dL Total Bilirubin (0.2-1.3) mg/dL AST (14-36) U/L ALT (4-34) U/L Alkaline Phosphatase (38-126) U/L Troponin I <0.012 (0.000-0.034) ng/mL Total Protein (6.3-8.2) g/dL Albumin (3.5-5.0) g/dL Amylase (30-110) U/L Lipase (23-300) U/L HCG, Qual - EKG Data -: EKG Interpreted by Me EKG Comments: 12-lead Electrocardiogram Interpretation Note EKG was reviewed and interpreted by myself. 12-lead ECG performed at 0809 is interpreted by me as revealing normal sinus rhythm at a rate of 59 beats per minute. [place] is normal. [place] interval is 158 ms, QRS duration is 88 ms, QTc is 400 ms.. There were no ST or T wave abnormalities to suggest myocardial ischemia or injury. R wave progression across the precordium was satisfactory. By my interpretation this EKG is non-diagnostic for acute ischemia. Disposition Clinical Impression: Acute cholecystitis Disposition: ADMITTED IP TO THIS HOSP Condition: Stable Referrals: Karena Berger MD [Primary Care Provider] - 1-2 days Time of Disposition: 10:30
[2022-04-23 08:50] LABS: Basophils # (A) 0.1 k/uL (0-0.2); Basophils % (A) 0 %; Eosinophils # (A) 0.2 k/uL (0-0.7); Eosinophils % (A) 1 %; HCT 43.9 % (34.0-46.0); HGB 14.1 gm/dL (11.4-16.0); Lymphocytes # (A) 1.6 k/uL (1.0-4.8); Lymphocytes % (A) 12 %; MCH 28.6 pg (25.0-35.0); MCHC 32.1 g/dL (31.0-37.0); MCV 88.8 fL (80.0-100.0); Mean Platelet Volume 8.6; Monocytes # (A) 0.7 k/uL (0-1.0); Monocytes % (A) 5 %; Neutrophils # (A) 10.8 k/uL (1.3-7.7); Neutrophils % (A) 81 %; Platelet Count 296 k/uL (150-450); RBC 4.94 m/uL (3.80-5.40); RDW 14.1 % (11.5-15.5); WBC 13.4 k/uL (3.8-10.6)
--- NOTE | 2022-04-23 08:51 | US ---
EXAMINATION TYPE: US gallbladder DATE OF EXAM: 04/23/2022 COMPARISON: US CLINICAL HISTORY: RUQ pain, history of stones. FAWN pain, N&V, known gallstones EXAM MEASUREMENTS: Liver Length: 21.2 cm Gallbladder Wall: 0.5 cm CBD: 0.9 cm Right Kidney: 11.7 x 4.4 x 4.4 cm Pancreas: wnl, tail obscured by overlying bowel gas Liver: Enlarged, heterogeneous Gallbladder: Gallstones, thickened wall Evidence for sonographic Gardner's sign: Yes CBD: Dilated Right Kidney: wnl IMPRESSION: 1. Cholelithiasis with wall thickening. Dilated common bile duct. Correlate for acute cholecystitis. 2. Hepatomegaly with underlying hepatic steatosis.
[2022-04-23 08:59] LABS: INR 0.9 (<1.2); Partial Thromboplastin Time 24.7 sec (22.0-30.0); Prothrombin Time 10.1 sec (9.0-12.0)
[2022-04-23 09:06] LABS: ALT 136 U/L (4-34); AST 193 U/L (14-36); African American GFR (CKD) >90 (>60 ml/min/1.73 sqM); Albumin 4.6 g/dL (3.5-5.0); Alkaline Phosphatase 166 U/L (38-126); Amylase 44 U/L (30-110); Anion Gap 10 mmol/L; Blood Urea Nitrogen 12 mg/dL (7-17); Calcium 9.3 mg/dL (8.4-10.2); Carbon Dioxide 23 mmol/L (22-30); Chloride 106 mmol/L (98-107); Glucose 141 mg/dL (74-99); Lipase 51 U/L (23-300); Non-African American GFR(CKD) >90 (>60 ml/min/1.73 sqM); Potassium 4.2 mmol/L (3.5-5.1); Sodium 139 mmol/L (137-145); Total Bilirubin 0.4 mg/dL (0.2-1.3); Total Protein 7.4 g/dL (6.3-8.2)
--- NOTE | 2022-04-23 09:23 | XR ---
EXAMINATION TYPE: XR chest 1V portable DATE OF EXAM: 04/23/2022 COMPARISON: NONE HISTORY: Chest pain TECHNIQUE: Single frontal view of the chest is obtained. FINDINGS: There is no focal air space opacity, pleural effusion, or pneumothorax seen. The cardiac silhouette size is within normal limits. The osseous structures are intact. IMPRESSION: 1. No acute process.
[2022-04-23 09:57] LABS: HCG,Qualitative Serum Not Detected
[2022-04-23] MEDS ORDERED: ONDANSETRON 4 MG/2 ML VIAL IVP PRN (10:36)
[2022-04-23] MEDS ORDERED: MORPHINE SULFATE 4 MG/ML SYRINGE IVP PRN (10:36)
[2022-04-23] MEDS ORDERED: NALOXONE 0.4 MG/ML 1 ML VIAL IV PRN (12:09)
[2022-04-23] MEDS: metroNIDAZOLE-NS PMX 500 MG in SALINE 1 100ML.BAG IVPB SCH ×2 (14:16→19:41)
--- NOTE | 2022-04-23 14:24 | P.GSHP ---
History of Present Illness H&P Date: 04/23/22 CHIEF COMPLAINT: Abdominal pain HISTORY OF PRESENT ILLNESS: This is a 36-year-old female who presents to emergency room with complaints of right upper quadrant abdominal pain with nausea and vomiting intermittently over the last 1 month. She does have a known history of gallstones. Patient reports that she's had 4 episodes of pain with vomiting. She reports usually it goes away on its own. However, last night she continued to have the right upper quadrant abdominal pain. She reports that the pain radiates into her back and shoulder. She has been having chills and sweats. Abdominal ultrasound shows cholelithiasis with wall thickening. Dilated common bile duct. Correlate for acute cholecystitis. Patient does have elevated LFTs and elevated white count. She started on antibiotics in the ER. She has known surgical history of 2 C-sections. She delivered a baby girl 2 months ago and had a at that time. PAST MEDICAL HISTORY: Gestational diabetes PAST SURGICAL HISTORY: 2, D&C, LEEP procedure MEDICATIONS: See list. ALLERGIES: See list. SOCIAL HISTORY: No illicit drug use. REVIEW OF SYSTEMS: CONSTITUTIONAL: Denies fever or chills. HEENT: Denies blurred vision, vision changes, or eye pain. Denies hemoptysis CARDIOVASCULAR: Denies chest pain or pressure. RESPIRATORY: No shortness of breath. GASTROINTESTINAL: See HPI for pertinent findings HEMATOLOGIC: Denies bleeding disorders. GENITOURINARY: Denies any blood in urine or increased urinary frequency. SKIN: Denies pruitis. Denies rash. PHYSICAL EXAM: VITAL SIGNS: Reviewed GENERAL: Well-developed in no acute distress. HEENT: No sclera icterus. Extraocular movements grossly intact. Moist buccal mucosa. Head is atraumatic, normocephalic. No nasal drainage. ABDOMEN: Soft. Nondistended. Tenderness on palpation of the right upper quadrant. scar healed NEUROLOGIC: Alert and oriented. Cranial nerves II through XII grossly intact. LABORATORY DATA: WBC is 13.4 Hgb 14.1 platelets 296 INR 0.9 Sodium 139 potassium 4.2 creatinine 0.83 Lactic acid 2.6-0.7 Total bilirubin 0.4 AST 193 ALT 136 alk phos 166 Troponin negative Lipase 51 HCG not detected IMAGING: Abdominal ultrasound shows cholelithiasis with wall thickening. Dilated common bile duct. Correlate for acute cholecystitis. Hepatomegaly with underlying hepatic steatosis ASSESSMENT: 1. Acute cholecystitis 2. Elevated LFTs 3. 2 months with delivery PLAN: -Patient tentatively scheduled for laparoscopic cholecystectomy tomorrow, 04/24/[address] Mcdonnell -Okay for low-fat diet -Nothing by mouth after midnight -Continue antibiotics -Repeat LFTs in a.m. -Consult GI service regarding elevated LFTs and possible choledocholithiasis -Continue pain medication as needed -Continue Zofran as needed -Continue IV fluids Physician Biometrics Technician note has been reviewed by physician. Signing provider agrees with the documented findings, assessment, and plan of care. I have personally seen and examined the patient, reviewed the RECEPTIONIST/TELEPHONE OPERATOR /PAs history, exam and MDM and agree with the assessment and plan as written. Based on total visit time, I have performed more than 50% of the visit. As above: Patient with recurrent episodes of right upper quadrant pain nausea and occasional vomiting. This episode began this morning at 4:30. Patient has mild biliary dilation on ultrasound and elevated liver enzymes. We'll repeat lab work tomorrow. If liver enzymes increase further will require evaluation for choledocholithiasis. Otherwise have scheduled the patient for laparoscopic cholecystectomy, possible open cholecystectomy tomorrow. Risks of bleeding, infection, bile leak, bile duct injury, retained common bile duct stone, trocar injury, conversion to an open procedure, hernia, anesthesia related complications were reviewed. The patient understands and wishes to proceed. Past Medical History Past Medical History: No Reported History History of Any Multi-Drug Resistant Organisms: None Reported Past Surgical History: Section Additional Past Surgical History / Comment(s): D & C Past Anesthesia/Blood Transfusion Reactions: Family History of Problems w/ Anesthesia Additional Past Anesthesia/Blood Transfusion Reaction / Comment(s): "Grandma cannot have anesthesia, caused breathing issues, has alot of allergies." Past Psychological History: No Psychological Hx Reported Smoking Status: Current every day smoker Past Alcohol Use History: None Reported Past Drug Use History: None Reported - Past Family History Mother Family Medical History: No Reported History Additional Family Medical History / Comment(s): hypothyroid Father Family Medical History: Hypertension Medications and Allergies Home Medications Medication Instructions Recorded Confirmed Type Pnv No.95/Ferrous Fum/Folic AC 1 tab PO DAILY 02/24/22 04/23/22 History [ Multivitamin Tablet] Allergies Allergy/AdvReac Type Severity Reaction Status Date / Time Sulfa (Sulfonamide Allergy Rash/Hives Verified 04/23/22 08:25 Antibiotics) Surgical - Exam Vital Signs Temp Pulse Resp BP Pulse Ox 98.1 F 67 22 117/70 96 04/23/22 07:01 04/23/22 07:01 04/23/22 07:01 04/23/22 07:01 04/23/22 07:01 Results - Labs 04/23/22 07:43 04/23/22 07:43 Abnormal Lab Results - Last 24 Hours (Table) 04/23/22 04/23/22 04/23/22 Range/Units 07:43 07:43 07:43 WBC 13.4 H (3.8-10.6) k/uL Neutrophils # 10.8 H (1.3-7.7) k/uL Glucose 141 H (74-99) mg/dL Plasma Lactic Acid Teddy 2.6 H* (0.7-2.0) mmol/L AST 193 H (14-36) U/L ALT 136 H (4-34) U/L Alkaline Phosphatase 166 H (38-126) U/L Diabetes panel 04/23/22 Range/Units 07:43 Sodium 139 (137-145) mmol/L Potassium 4.2 (3.5-5.1) mmol/L Chloride 106 (98-107) mmol/L Carbon Dioxide 23 (22-30) mmol/L BUN 12 (7-17) mg/dL Creatinine 0.83 (0.52-1.04) mg/dL Glucose 141 H (74-99) mg/dL Calcium 9.3 (8.4-10.2) mg/dL AST 193 H (14-36) U/L ALT 136 H (4-34) U/L Alkaline Phosphatase 166 H (38-126) U/L Total Protein 7.4 (6.3-8.2) g/dL Albumin 4.6 (3.5-5.0) g/dL Calcium panel 04/23/22 Range/Units 07:43 Calcium 9.3 (8.4-10.2) mg/dL Albumin 4.6 (3.5-5.0) g/dL Pituitary panel 04/23/22 Range/Units 07:43 Sodium 139 (137-145) mmol/L Potassium 4.2 (3.5-5.1) mmol/L Chloride 106 (98-107) mmol/L Carbon Dioxide 23 (22-30) mmol/L BUN 12 (7-17) mg/dL Creatinine 0.83 (0.52-1.04) mg/dL Glucose 141 H (74-99) mg/dL Calcium 9.3 (8.4-10.2) mg/dL Adrenal panel 04/23/22 Range/Units 07:43 Sodium 139 (137-145) mmol/L Potassium 4.2 (3.5-5.1) mmol/L Chloride 106 (98-107) mmol/L Carbon Dioxide 23 (22-30) mmol/L BUN 12 (7-17) mg/dL Creatinine 0.83 (0.52-1.04) mg/dL Glucose 141 H (74-99) mg/dL Calcium 9.3 (8.4-10.2) mg/dL Total Bilirubin 0.4 (0.2-1.3) mg/dL AST 193 H (14-36) U/L ALT 136 H (4-34) U/L Alkaline Phosphatase 166 H (38-126) U/L Total Protein 7.4 (6.3-8.2) g/dL Albumin 4.6 (3.5-5.0) g/dL
[2022-04-23 16:02] LABS: Appearance,Urine Clear (Clear); Bilirubin,Urine Negative (Negative); Blood,Urine Moderate (Negative); Color,Urine Yellow; Glucose,Urine (UA) Negative (Negative); Ketones,Urine Negative (Negative); Leukocyte Esterase,Urine Trace (Negative); Mucus,Urine Moderate /hpf; Nitrite,Urine Negative (Negative); Protein,Urine Trace (Negative); RBC,Urine <1 /hpf (0-5); Specific Gravity,Urine 1.028 (1.001-1.035); Squamous Epithelial Cell,Urine 9 /hpf (0-4); Urobilinogen,Urine <2.0 mg/dL (<2.0); WBC,Urine 3 /hpf (0-5)
--- NOTE | 2022-04-23 16:04 | P.CONS ---
History of Present Illness - Reason for Consult Consult date: 04/23/22 Cholecystitis Requesting physician: Darryl Mcdonnell - Chief Complaint Abdominal pain - History of Present Illness This pleasant 36-year-old white female who presented to the emergency department with complaints of abdominal pain. She states the abdominal pain is mostly in the right upper quadrant history of around 4 AM this morning and is associated with nausea and vomiting. She states that she's had some intermittent nausea vomiting and pain over last 1 month's duration. She does have a history of gallstones and has had 4 "flares"in the past. She complains of chills and sweats, unsure she's had a fever. Abdominal ultrasound shows cholelithiasis with wall thickening. Mildly dilated common bile duct at 0.9 cm. Correlate for acute cholecystitis. She has elevated LFTs and elevated white count she was started on antibiotics in the emergency room. She has no other significant medical history she is not on any anticoagulation. Review of Systems REVIEW OF SYSTEMS: CARDIOPULMONARY: No chest pain or shortness of breath. Gastrointestinal: Right upper quadrant and epigastric pain radiating into her back and shoulders. Nausea with vomiting. No hematemesis, coffee-ground emesis. No rectal bleeding, or melena. GENITOURINARY: No dysuria or hematuria. MUSCULOSKELETAL: Reports normal range of motion., Joint pain. SKIN: No rashes. No jaundice. ENDOCRINE: No chills, fevers. No excessive weight gain or loss. No polydipsia or polyuria. PSYCHIATRIC: Unremarkable. NEUROLOGY: No change in mental status. Denies dizziness, headache. ENT: Vision unremarkable. CONSTITUTIONAL: No recent weight loss. Chills and sweats. Past Medical History Past Medical History: No Reported History Additional Past Medical History / Comment(s): Gallstones, gestational diabetes. History of Any Multi-Drug Resistant Organisms: None Reported Past Surgical History: Section Additional Past Surgical History / Comment(s): D & C Past Anesthesia/Blood Transfusion Reactions: Family History of Problems w/ Anesthesia Additional Past Anesthesia/Blood Transfusion Reaction / Comm: "Grandma cannot have anesthesia, caused breathing issues, has alot of allergies." Past Psychological History: No Psychological Hx Reported Smoking Status: Current every day smoker Past Alcohol Use History: None Reported Past Drug Use History: None Reported - Past Family History Mother Family Medical History: No Reported History Additional Family Medical History / Comment(s): hypothyroid Father Family Medical History: Hypertension Medications and Allergies Home Medications Medication Instructions Recorded Confirmed Type Pnv No.95/Ferrous Fum/Folic AC 1 tab PO DAILY 02/24/22 04/23/22 History [ Multivitamin Tablet] Allergies Allergy/AdvReac Type Severity Reaction Status Date / Time Sulfa (Sulfonamide Allergy Rash/Hives Verified 04/23/22 08:25 Antibiotics) Physical Exam Vitals: Vital Signs Temp Pulse Resp BP Pulse Ox 04/23/22 07:01 98.1 F 67 22 117/70 96 Intake and Output 04/23/22 04/23/22 04/23/22 06:59 14:59 22:59 Other: Weight 106.594 kg General appearance: The patient is alert, oriented, appears in no acute distress. Obese. HET: Head is normocephalic and atraumatic. Conjunctiva pink. Sclera anicteric. Neck: Supple without lymphadenopathy. Trachea midline. Heart: S1 S2. Regular rate and rhythm. Lungs: Clear to auscultation. Abdomen: Soft, right upper quadrant tenderness, nondistended with bowel sounds. No guarding or rigidity. Skin: No rashes. No jaundice. Extremities: Normal skin color and turgor. No pedal edema. Neurological: No focal deficits. Alert and oriented x3. Results CBC & Chem 7: 04/23/22 07:43 04/23/22 07:43 Labs: Abnormal Lab Results - Last 24 Hours (Table) 04/23/22 04/23/22 04/23/22 Range/Units 07:43 07:43 07:43 WBC 13.4 H (3.8-10.6) k/uL Neutrophils # 10.8 H (1.3-7.7) k/uL Glucose 141 H (74-99) mg/dL Plasma Lactic Acid Teddy 2.6 H* (0.7-2.0) mmol/L AST 193 H (14-36) U/L ALT 136 H (4-34) U/L Alkaline Phosphatase 166 H (38-126) U/L US - abdomen: report reviewed (Cholelithiasis with wall thickening. Dilated common bile duct. Correlate for acute cholecystitis. Hepatomegaly with underlying hepatic steatosis) Assessment and Plan (1) Abdominal pain Narrative/Plan: 36-year-old female presented to the emergency department with right upper quadrant pain radiating to her back associated with nausea and vomiting with known history of gallstones. Patient came in with elevated LFTs and WBC. Started on antibiotics. Gallbladder ultrasound showing cholelithiasis with wall thickening dilated common bile duct and correlate for acute cholecystitis. Patient also has hepatomegaly with underlying hepatic steatosis. Patient has been having pain with nausea and vomiting off-and-on over the last 1 month's duration. States she's had for flares in the past. Gen. surgery is following patient closely and she is scheduled for tentative cholecystectomy tomorrow with Dr. Mcdonnell. Recommend repeating labs in the morning. With further recommendations forthcoming based on clinical course. Current Visit: Yes Status: Acute Code(s): R10.9 - UNSPECIFIED ABDOMINAL PAIN SNOMED Code(s): 19668857 (2) Acute cholecystitis Current Visit: Yes Status: Acute Code(s): K81.0 - ACUTE CHOLECYSTITIS SNOMED Code(s): 66892191 (3) Obesity (BMI 35.0-39.9 without comorbidity) Current Visit: Yes Status: Acute Code(s): E66.9 - OBESITY, UNSPECIFIED SNOMED Code(s): 929990131 Plan: 1. Continue symptomatic and supportive care 2. Antiemetics as needed 3. Protonix 40 mg daily 4. Nothing by mouth after midnight 5. Repeat CBC, CMP in the morning 6. Continue antibiotics as ordered 7. Continue with recommendations from general surgery 8. Further recommendations forthcoming pending clinical course Thank you for this consultation, we will continue to follow. Dr. Eve Diego I agree with the dictator's note, documented as a scribe by Raven Ryan.
[2022-04-23] MEDS: HEPARIN SODIUM,PORCINE/PF 5,000 UNIT/0.5 ML SYRINGE SQ SCH ×2 (17:54→23:23)
[2022-04-23] MEDS: NICOTINE 14MG/24HR PATCH TRANSDERM SCH (23:20)
[2022-04-24] MEDS: metroNIDAZOLE-NS PMX 500 MG in SALINE 1 100ML.BAG IVPB SCH ×3 (02:26→20:06)
[2022-04-24 05:43] LABS: Basophils % (A) 1 %; Eosinophils # (A) 0.3 k/uL (0-0.7); Eosinophils % (A) 4 %; HCT 39.4 % (34.0-46.0); HGB 12.4 gm/dL (11.4-16.0); Lymphocytes # (A) 2.5 k/uL (1.0-4.8); Lymphocytes % (A) 38 %; MCH 28.3 pg (25.0-35.0); MCHC 31.6 g/dL (31.0-37.0); MCV 89.6 fL (80.0-100.0); Mean Platelet Volume 8.8; Monocytes # (A) 0.4 k/uL (0-1.0); Monocytes % (A) 7 %; Neutrophils # (A) 3.2 k/uL (1.3-7.7); Neutrophils % (A) 49 %; Platelet Count 224 k/uL (150-450); RDW 14.2 % (11.5-15.5); WBC 6.6 k/uL (3.8-10.6)
[2022-04-24 06:15] LABS: ALT 88 U/L (4-34); AST 42 U/L (14-36); African American GFR (CKD) >90 (>60 ml/min/1.73 sqM); Albumin 3.5 g/dL (3.5-5.0); Albumin/Globulin Ratio 1.5; Alkaline Phosphatase 103 U/L (38-126); Anion Gap 3 mmol/L; Blood Urea Nitrogen 12 mg/dL (7-17); Calcium 8.4 mg/dL (8.4-10.2); Carbon Dioxide 26 mmol/L (22-30); Chloride 110 mmol/L (98-107); Globulin 2.3 g/dL; Glucose 97 mg/dL (74-99); Non-African American GFR(CKD) 89 (>60 ml/min/1.73 sqM); Potassium 3.8 mmol/L (3.5-5.1); Sodium 139 mmol/L (137-145); Total Bilirubin 0.3 mg/dL (0.2-1.3); Total Protein 5.8 g/dL (6.3-8.2)
[2022-04-24] MEDS: HEPARIN SODIUM,PORCINE/PF 5,000 UNIT/0.5 ML SYRINGE SQ SCH ×2 (07:44→19:19)
[2022-04-24] MEDS: NICOTINE 14MG/24HR PATCH TRANSDERM SCH (07:44)
--- NOTE | 2022-04-24 13:42 | P.PN ---
Subjective Progress Note Date: 04/24/22 Principal diagnosis: Right upper quadrant pain, cholecystitis 36-year-old female who presented to the emergency department yesterday with complaints of right upper quadrant pain radiating to her back. She was found to have acute cholecystitis with elevated LFTs. The gastroenterology was consulted for the elevated LFTs. Gen. surgery has her scheduled today for cholecystectom y. Patient states abdominal pain has improved. She has no nausea or vomiting. LFTs are trending down. Total bilirubin 0.3 AST 42 ALT 88 alkaline phosphatase 103. Patient is afebrile with temp of 97.7. Objective - Vital Signs Vital signs: Vital Signs Temp 97.7 F 04/24/22 07:26 Pulse 78 04/24/22 08:00 Resp 18 04/24/22 08:00 BP 116/60 04/24/22 07:26 Pulse Ox 96 04/24/22 07:26 FiO2 Intake & Output 04/23/22 04/24/22 04/24/22 18:59 06:59 18:59 Weight 106.594 kg Other: # Voids 1 - Exam General appearance: The patient is alert, oriented, appears in no acute distress. HET: Head is normocephalic and atraumatic. Conjunctiva pink. Sclera anicteric. Neck: Supple without lymphadenopathy. Abdomen: Soft, nontender, nondistended with bowel sounds. No guarding or rigidity. Extremities: Normal skin color and turgor. No pedal edema Skin: No rashes, no jaundice Neurological: No focal deficits. Alert and oriented. - Labs CBC & Chem 7: 04/24/22 05:25 04/24/22 05:25 Labs: Abnormal Lab Results - Last 24 Hours (Table) 04/23/22 04/24/22 Range/Units 07:43 05:25 Chloride 110 H (98-107) mmol/L AST 42 H (14-36) U/L ALT 88 H (4-34) U/L Total Protein 5.8 L (6.3-8.2) g/dL Urine Protein Trace H (Negative) Urine Blood Moderate H (Negative) Ur Leukocyte Esterase Trace H (Negative) Ur Squamous Epith Cells 9 H (0-4) /hpf Urine Mucus Moderate H (None) /hpf Assessment and Plan (1) Abdominal pain Narrative/Plan: 36-year-old female presented to the emergency department with right upper quadrant pain radiating to her back associated with nausea and vomiting with known history of gallstones. Patient came in with elevated LFTs and WBC. Started on antibiotics. Gallbladder ultrasound showing cholelithiasis with wall thickening dilated common bile duct and correlate for acute cholecystitis. Patient also has hepatomegaly with underlying hepatic steatosis. Patient has been having pain with nausea and vomiting off-and-on over the last 1 month's duration. States she's had for flares in the past. Gen. surgery is following patient closely and she is scheduled for tentative cholecystectomy tomorrow with Dr. Mcdonnell. Recommend repeating labs in the morning. With further recommendations forthcoming based on clinical course. Current Visit: Yes Status: Acute Code(s): R10.9 - UNSPECIFIED ABDOMINAL PAIN SNOMED Code(s): 80389811 (2) Acute cholecystitis Narrative/Plan: The patient is followed by general surgery. She is scheduled for cholecystectomy today. Current Visit: Yes Status: Acute Code(s): K81.0 - ACUTE CHOLECYSTITIS SNOMED Code(s): 37101677 (3) Obesity (BMI 35.0-39.9 without comorbidity) Current Visit: Yes Status: Acute Code(s): E66.9 - OBESITY, UNSPECIFIED SNOMED Code(s): 727216455 Plan: 1. Continue symptomatic and supportive care 2. Antiemetics as needed 3. Protonix 40 mg daily 4. Repeat CMP tomorrow 5. Continue with recommendations from general surgery Thank you for allowing us to participate in the care of the patient, the GI service will sign off, gastroenterology will not be available at the hospital this weekend. If further evaluation by gastroenterology is required the patient will need transfer as per the primary team's discretion. Dr. Eve Diego I agree with the dictator's note, documented as a scribe by Raven Ryan.
[2022-04-24] MEDS ORDERED: IV FLUID CONTINUATION 1,000 ML IV ONE (14:23)
[2022-04-24] MEDS ORDERED: DEXAMETHASONE SOD PHOSPHATE 4 MG/ML 1 ML VIAL IVP ONE (14:47)
[2022-04-24 14:48] LABS: Glucose,Whole Blood 85 mg/dL (70-110)
[2022-04-24] MEDS ORDERED: ONDANSETRON 4 MG/2 ML VIAL IVP ONE ×2 (14:48→18:10)
[2022-04-24] MEDS ORDERED: MIDAZOLAM 2 MG/2 ML VIAL ONE (16:31)
[2022-04-24] MEDS ORDERED: SUCCINYLCHOLINE CHLORIDE 100 MG/5 ML SYR IV ONE (16:31)
[2022-04-24] MEDS ORDERED: fentaNYL (PF) 50 MCG/ML 2 ML AMP ONE (16:31)
[2022-04-24] MEDS ORDERED: ROCURONIUM 10 MG/ML (5 ML VIAL) IV ONE (16:31)
[2022-04-24] MEDS ORDERED: HEPARIN SODIUM,PORCINE 5,000 UNIT/ML 1 ML VIAL ONE (16:31)
[2022-04-24] MEDS ORDERED: HYDROmorphone (PF) 1 MG/ML ONE (16:31)
[2022-04-24] MEDS ORDERED: LIDOCAINE 2% INJ 20 MG/ML (2 ML VIAL) ONE (16:31)
[2022-04-24] MEDS ORDERED: PROPOFOL 10 MG/ML 20 ML VIAL IV ONE (16:31)
[2022-04-24] MEDS ORDERED: NEOSTIGMINE 1 MG/ML 10 ML VIAL ONE (16:31)
[2022-04-24] MEDS ORDERED: GLYCOPYRROLATE 0.2 MG/ML 2 ML VIAL ONE (16:31)
[2022-04-24] MEDS ORDERED: BUPIVACAIN-EPI 0.25%-1:200,000 30 ML VIAL SQ ONE (16:59)
[2022-04-24] MEDS ORDERED: LACTATED RINGERS 1,000 ML IV ONE (17:29)
[2022-04-24] MEDS ORDERED: HYDROmorphone 1 MG/ML 1 ML SYRINGE IVP PRN (17:51)
[2022-04-24] MEDS ORDERED: HYDROcodone/APAP 5-325MG 1 EACH TAB PO PRN (17:51)
[2022-04-24] MEDS ORDERED: ACETAMINOPHEN TAB 325 MG TAB PO PRN (17:51)
--- NOTE | 2022-04-24 17:54 | P.OP ---
Date of Procedure: 04/24/22 Procedure(s) Performed: PREOPERATIVE DIAGNOSIS: Acute cholecystitis POSTOPERATIVE DIAGNOSIS: Same PROCEDURE: Laparoscopic cholecystectomy SURGEON: Sathya EBL: Minimal see anesthesia record ANESTHESIA: Gen. COMPLICATIONS: None OPERATIVE PROCEDURE: The patient was brought and placed on the operating room table in the supine position. The patient was placed under general anesthesia at that time. The abdomen was prepped and draped in the usual sterile fashion. A small vertical infraumbilical incision was made. The fascia was grasped with the Rozina forceps. The fascia was retracted anteriorly. The Veress needle was advanced into the peritoneal cavity. The saline drop test was normal. Insufflation took place up to 15 mmHg. A 5 mm optical trocar was advanced and the peritoneal cavity. 2 additional 5 mm trochars were placed in the right upper quadrant under direct visualization. A 12 mm trocar was advanced into the epigastric incision site. The gallbladder was retracted superiorly and laterally. The peritoneum overlying the infundibulum was bluntly dissected. The patient's cystic duct was visualized. The junction between the cystic duct common and hepatic duct was identified. The critical view of safety was achieved after blunt dissection. The cystic duct was then divided after placement of 3 12 mm clips on the patient's side and one on the specimen side. The cystic artery was identified and clipped as well. A small vessel was seen along the gallbladder fossa and clipped as well. The gallbladder was then removed from the liver bed using electrocautery. The gallbladder was then removed from the epigastric trocar site with an Endo Catch bag. The gallbladder fossa was irrigated with saline. There was no evidence of any bleeding or biliary drainage seen. The fascia at the 12 millimeter site was closed using a Chito-Andrzej 0 Vicryl stitch. The trochars were then removed. The skin at all 4 sites was closed using a 4-0 Monocryl stitch. Skin glue was utilized on the incision sites. At the end of this procedure the sponge and needle counts were correct. DISPOSITION: Stable to the recovery room
[2022-04-24] MEDS ORDERED: KETOROLAC 15 MG/ML 1 ML VIAL IVP SCH (18:00)
[2022-04-24] MEDS ORDERED: HYDROmorphone 0.5 MG/0.5 ML SYRINGE IVP ONE ×2 (18:12→18:25)
[2022-04-24] MEDS ORDERED: KETOROLAC 15 MG/ML 1 ML VIAL IVP ONE (18:13)
[2022-04-24 21:27] VITALS: RESP 14
[2022-04-24 21:30] VITALS: BP 121/75; PULSE 77; TEMP 97.7
== END 2022-04-24 21:35 | disposition home or self-care (01) ==
LOC: EC 07:00 → 6NMEDSUR 12:12
PROVIDERS: ADMIT Surgery; ATTEND Surgery
DX: K80.12 Calculus of gallbladder with acute and chronic cholecystitis without obstruction (principal); R79.89 Other specified abnormal findings of blood chemistry; R16.0 Hepatomegaly, not elsewhere classified; K76.0 Fatty (change of) liver, not elsewhere classified; E66.9 Obesity, unspecified; Z68.37 Body mass index [BMI] 37.0-37.9, adult; F17.200 Nicotine dependence, unspecified, uncomplicated; Z86.32 Personal history of gestational diabetes; Z98.890 Other specified postprocedural states; Z98.891 History of uterine scar from previous surgery; Z87.19 Personal history of other diseases of the digestive system; Z82.49 Family history of ischemic heart disease and other diseases of the circulatory system; Z83.49 Family history of other endocrine, nutritional and metabolic diseases; Z88.2 Allergy status to sulfonamides
CPT/HCPCS: 96376; 96361; 96374; 96375; 99285; 36415; 93005; 88304; 80053 ×2; 82150; 83605; 83690; 84484; 85025 ×2; 85610; 85730; 81001; 84703; 87040; 71045; 76705; 47562; G0378 ×2; S4990; J2250; J2270; J1200; J1644; J1100; J2710; J2405 ×2; J0696 ×2; J3010; J1170 ×2; J1885; J0330; J2704; C9113; J2001

== ENCOUNTER 2025-04-18 06:42 | Emergency (ER) | payer BC ==
[2025-04-18 06:46] VITALS: TEMP 98.2
[2025-04-18] MEDS ORDERED: KETOROLAC 15 MG/ML 1 ML VIAL IVP STA (07:06)
--- NOTE | 2025-04-18 07:06 | ED ---
Abdominal Pain HPI - General Chief Complaint: Abdominal Pain Stated Complaint: Abd Pain/Back Pain Time Seen by Provider: 04/18/25 07:06 Source: patient, RN notes reviewed Mode of arrival: ambulatory Limitations: no limitations - History of Present Illness Initial Comments: 39-year-old female presented the ER for evaluation of abdominal pain. Patient states this morning she is having severe sharp/cramping lower abdominal pain. She does report radiation to her right back. Patient states she has had normal bowel movements last bowel movement yesterday. She states she has chronic diarrhea due to a history of cholecystectomy. No other abdominal surgeries besides sections. Patient mitts to nausea and chills but denies vomiting or known fevers. She has taken ibuprofen without relief of symptoms. Patient denies any hematuria, dysuria or increasing urinary frequency. No abnormal vaginal bleeding or discharge. Denies . Patient denies history of kidney stones. Denies history of ulcerative colitis or Crohn's disease. - Related Data Home Medications Medication Instructions Recorded Confirmed Pnv No.95/Ferrous Fum/Folic AC 1 tab PO DAILY 02/24/22 04/25/22 [ Multivitamin Tablet] Previous Rx's Medication Instructions Recorded HYDROcodone/APAP 5-325MG [Ironside 1 tab PO Q6HR PRN 3 Days #6 tab 04/24/22 5-325] Allergies Allergy/AdvReac Type Severity Reaction Status Date / Time Sulfa (Sulfonamide Allergy Rash/Hives Verified 04/18/25 06:45 Antibiotics) Review of Systems ROS Statement: Those systems with pertinent positive or pertinent negative responses have been documented in the HPI. ROS Other: All systems not noted in ROS Statement are negative. Past Medical History Past Medical History: No Reported History Additional Past Medical History / Comment(s): Gallstones, gestational diabetes. History of Any Multi-Drug Resistant Organisms: None Reported Past Surgical History: Section, Cholecystectomy Additional Past Surgical History / Comment(s): D & C Past Anesthesia/Blood Transfusion Reactions: Family History of Problems w/ Anesthesia Additional Past Anesthesia/Blood Transfusion Reaction / Comment(s): "Grandma cannot have anesthesia, caused breathing issues, has alot of allergies." Past Psychological History: No Psychological Hx Reported Smoking Status: Vaper Past Alcohol Use History: Rare Past Drug Use History: None Reported - Past Family History Mother Family Medical History: No Reported History Additional Family Medical History / Comment(s): hypothyroid Father Family Medical History: Hypertension General Exam Limitations: no limitations General appearance: alert, in no apparent distress Respiratory exam: Present: normal lung sounds bilaterally. Absent: respiratory distress, wheezes, rales, rhonchi, stridor Cardiovascular Exam: Present: regular rate, normal rhythm, normal heart sounds. Absent: systolic murmur, diastolic murmur, rubs, gallop, clicks GI/Abdominal exam: Present: soft, tenderness (Exquisite right lower quadrant. ), normal bowel sounds Extremities exam: Present: normal inspection, full ROM, normal capillary refill. Absent: tenderness, pedal edema, joint swelling, calf tenderness Back exam: Present: normal inspection Neurological exam: Present: alert, oriented X3, CN II-XII intact Skin exam: Present: warm, dry, intact, normal color. Absent: rash Course Vital Signs 04/18/25 04/18/25 06:43 11:38 Temperature 98.2 F Pulse Rate 90 59 L Respiratory 18 13 Rate Blood Pressure 123/92 128/86 O2 Sat by Pulse 98 99 Oximetry Medical Decision Making - Medical Decision Making Was pt. sent in by a medical professional or institution (, PA, [facility], urgent care, hospital, or senior care...) When possible be specific @ -No Did you speak to anyone other than the patient for history (EMS, parent, family, police, friend...)? What history was obtained from this source @ -No Did you review nursing and triage notes (agree or disagree)? Why? @ -I reviewed and agree with nursing and triage notes Were old charts reviewed (outside hosp., previous admission, EMS record, old EKG, old radiological studies, urgent care reports/EKG's, senior care records)? Report findings @ -No old charts were reviewed Differential Diagnosis (chest pain, altered mental status, abdominal pain women, abdominal pain men, vaginal bleeding, weakness, fever, dyspnea, syncope, headache, dizziness, GI bleed, back pain, seizure, CVA, palpatations, mental health, musculoskeletal)? @ -Differential Abdominal Pain Women:Appendicitis, Cholecystitis, diverticulosis, ischemic bowel, pancreatitis, hepatitis, UTI, gastroenteritis, AAA, incarcerated hernia, bowel obstruction, constipation, inflammatory bowel, hepatitis, peptic ulcer disease, splenic infarction, perforated viscus, vulvitis, ovarian torsion, PID, kidney stone, placenta abruption, this is not meant to be an all-inclusive list EKG interpreted by me (3pts min.). @ -As above X-rays interpreted by me (1pt min.). @ -None done CT interpreted by me (1pt min.). @ -CT abdomen pelvis negative for acute intra-abdominal/pelvic process. Normal appendix U/S interpreted by me (1pt. min.). @ -Transvaginal ultrasound showing no evidence of acute process. Endometrium within normal limits of thickness. Appropriate arterial and venous blood flow to bilateral ovaries. Dominant follicle left ovary. What testing was considered but not performed or refused? (CT, X-rays, U/S, labs)? Why? @ -None What meds were considered but not given or refused? Why? @ -None Did you discuss the management of the patient with other professionals (professionals i.e. , PA, [facility], lab, RT, psych nurse, social human services assistants, sign painter, teacher, chief media officer, case specialist)? Give summary @ -No Was smoking cessation discussed for >3mins.? @ -No Was critical care preformed (if so, how long)? @ -No Were there social determinants of health that impacted care today? How? (Homelessness, low income, unemployed, alcoholism, drug addiction, transportation, low edu. Level, literacy, decrease access to med. care, nursing home, rehab)? @ -No Was there de-escalation of care discussed even if they declined (Discuss DNR or withdrawal of care, Hospice)? DNR status @ -No What co-morbidities impacted this encounter? (DM, HTN, Smoking, COPD, CAD, Cancer, CVA, ARF, Chemo, Hep., AIDS, mental health diagnosis, sleep apnea, morbid obesity)? @ -None Was patient admitted / discharged? Hospital course, mention meds given and route, prescriptions, significant lab abnormalities, going to OR and other pertinent info. @ -Discharge. 39-year-old female presented the ER for evaluation of abdominal pain. Vital signs stable. Patient no signs acute distress nontoxic-appearing. Laboratory studies obtained unremarkable. Urinalysis with trace protein fridge patient received IV fluid bolus. No evidence of urinary infection. Urine hCG negative. CT abdomen pelvis performed negative for acute intra-abdominal/pelvic process. Normal appendix noted. As patient reported continued pain after IV medications, transvaginal ultrasound obtained and negative for acute process. Appropriate blood flow to bilateral ovaries. EKG was obtained showing a nonspecific ST elevation in inferior lateral leads this is believed to be early repolarization as patient has no chest pain or other cardiac symptoms. 2 EKGs were obtained showing similar pattern. Patient educated on today's findings. Advised continues [id number] ibuprofen and Tylenol for pain control. I recommend close follow-up with PCP in the next 1 to 2 days for reevaluation. Strict return parameters discussed. Patient discharged stable condition. Patient verbally expressed understand agree with care plan. Case discussed with ED attending, Dr. Wolf. Undiagnosed new problem with uncertain prognosis? @ -No Drug Therapy requiring intensive monitoring for toxicity (Heparin, Nitro, Insulin, Cardizem)? @ -No Were any procedures done? @ -No Diagnosis/symptom? @ -Abdominal pain Acute, or Chronic, or Acute on Chronic? @ -Acute Uncomplicated (without systemic symptoms) or Complicated (systemic symptoms)? @ -Uncomplicated Side effects of treatment? @ -No Exacerbation, Progression, or Severe Exacerbation? @ -No Poses a threat to life or bodily function? How? (Chest pain, USA, [place], pneumonia, PE, COPD, DKA, ARF, appy, cholecystitis, CVA, Diverticulitis, Homicidal, Suicidal, threat to staff... and all critical care pts) @ -No - Lab Data Result diagrams: 04/18/25 07:47 04/18/25 07:47 Lab Results 04/18/25 04/18/25 04/18/25 Range/Units 06:52 06:52 07:47 WBC 9.07 (4.50-10.00) 10*3/uL RBC 4.87 (4.10-5.20) 10*6/uL Hgb 13.9 (12.0-15.0) g/dL Hct 42.8 (37.2-46.3) % MCV 87.9 (80.0-97.0) fL MCH 28.5 (27.0-32.0) pg MCHC 32.5 (32.0-37.0) g/dL Plt Count 263 (140-440) 10*3/uL MPV 10.3 (9.5-12.2) fL Immature Gran % (Auto) 0.3 % Neutrophils % 73.0 % Lymphocytes % 18.5 % Monocytes % 6.7 % Eosinophils % 0.8 % Basophils % 0.7 % Immature Gran # 0.03 (0.00-0.04) 10*3/uL Neutrophils # 6.62 (1.80-7.70) 10*3/uL Lymphocytes # 1.68 (0.90-5.00) 10*3/uL Monocytes # 0.61 (0.20-1.00) 10*3/uL Eosinophils # 0.07 (0.04-0.35) 10*3/uL Basophils # 0.06 (0.00-0.10) 10*3/uL Sodium (137-145) mmol/L Potassium (3.5-5.1) mmol/L Chloride (98-107) mmol/L Carbon Dioxide (22-30) mmol/L Anion Gap mmol/L BUN (7-17) mg/dL Creatinine (0.52-1.04) mg/dL Est GFR (CKD-EPI)AfAm (>60 ml/min/1.73 sqM) Est GFR (CKD-EPI)NonAf (>60 ml/min/1.73 sqM) Glucose (74-99) mg/dL Plasma Lactic Acid Teddy (0.7-2.0) mmol/L Calcium (8.4-10.2) mg/dL Total Bilirubin (0.2-1.3) mg/dL AST (14-36) U/L ALT (4-34) U/L Alkaline Phosphatase (38-126) U/L Total Protein (6.3-8.2) g/dL Albumin (3.5-5.0) g/dL Amylase (30-110) U/L Lipase (23-300) U/L Urine Color Yellow Urine Appearance Clear (Clear) Urine pH 6.0 (5.0-8.0) Ur Specific [place] >1.050 H (1.001-1.035) Urine Protein Trace H (Negative) Urine Glucose (UA) Negative (Negative) Urine Ketones Negative (Negative) Urine Blood Negative (Negative) Urine Nitrite Negative (Negative) Urine Bilirubin Negative (Negative) Urine Urobilinogen <2.0 (<2.0) mg/dL Ur Leukocyte Esterase Negative (Negative) Urine HCG, Qual Not Detected (Not Detectd) 04/18/25 04/18/25 Range/Units 07:47 07:47 WBC (4.50-10.00) 10*3/uL RBC (4.10-5.20) 10*6/uL Hgb (12.0-15.0) g/dL Hct (37.2-46.3) % MCV (80.0-97.0) fL MCH (27.0-32.0) pg MCHC (32.0-37.0) g/dL Plt Count (140-440) 10*3/uL MPV (9.5-12.2) fL Immature Gran % (Auto) % Neutrophils % % Lymphocytes % % Monocytes % % Eosinophils % % Basophils % % Immature Gran # (0.00-0.04) 10*3/uL Neutrophils # (1.80-7.70) 10*3/uL Lymphocytes # (0.90-5.00) 10*3/uL Monocytes # (0.20-1.00) 10*3/uL Eosinophils # (0.04-0.35) 10*3/uL Basophils # (0.00-0.10) 10*3/uL Sodium 139 (137-145) mmol/L Potassium 4.2 (3.5-5.1) mmol/L Chloride 105 (98-107) mmol/L Carbon Dioxide 25 (22-30) mmol/L Anion Gap 9 mmol/L BUN 9 (7-17) mg/dL Creatinine 0.61 (0.52-1.04) mg/dL Est GFR (CKD-EPI)AfAm >90 (>60 ml/min/1.73 sqM) Est GFR (CKD-EPI)NonAf >90 (>60 ml/min/1.73 sqM) Glucose 148 H (74-99) mg/dL Plasma Lactic Acid Teddy 1.3 (0.7-2.0) mmol/L Calcium 9.4 (8.4-10.2) mg/dL Total Bilirubin 0.5 (0.2-1.3) mg/dL AST 27 (14-36) U/L ALT 27 (4-34) U/L Alkaline Phosphatase 46 (38-126) U/L Total Protein 7.0 (6.3-8.2) g/dL Albumin 4.4 (3.5-5.0) g/dL Amylase 41 (30-110) U/L Lipase 46 (23-300) U/L Urine Color Urine Appearance (Clear) Urine pH (5.0-8.0) Ur Specific [place] (1.001-1.035) Urine Protein (Negative) Urine Glucose (UA) (Negative) Urine Ketones (Negative) Urine Blood (Negative) Urine Nitrite (Negative) Urine Bilirubin (Negative) Urine Urobilinogen (<2.0) mg/dL Ur Leukocyte Esterase (Negative) Urine HCG, Qual (Not Detectd) - EKG Data -: EKG Interpreted by Me EKG Comments: EKG taken at 7: 53 showing sinus rhythm. Nonspecific ST changes noted to inferior lateral leads likely early repolarization. No T wave inversions. Ventricular rate 78, AK interval 139, QRS duration 94, QT/QTc 348/381. EKG taken at 8: 31 showing sinus rhythm there is early repolarization noted in inferior lateral leads. Similar to prior. No T wave versions. Ventricular at 67, AK interval 142, QRS duration 87, QT/QTc 373/389. - Radiology Data Radiology results: report reviewed, image reviewed Disposition Clinical Impression: Abdominal pain Disposition: HOME SELF-CARE Condition: Stable Instructions (If sedation given, give patient instructions): Abdominal Pain (ED) Additional Instructions: Follow-up closely with PCP. Return to the ER for any new or worsening concerns. Is patient prescribed a controlled substance at d/c from ED?: No Referrals: Tavon Reis MD [Primary Care Provider] - 1-2 days Time of Disposition: 11:03
[2025-04-18] MEDS: HYDROmorphone 0.5 MG/0.5 ML SYRINGE IVP STA (07:45)
[2025-04-18] MEDS: ONDANSETRON 4 MG/2 ML VIAL IVP STA (07:46)
[2025-04-18] MEDS: SODIUM CHLORIDE 0.9% 1,000 ML IV ONE (07:47)
[2025-04-18 07:58] LABS: Basophils # (A) 0.06 10*3/uL (0.00-0.10); Basophils % (A) 0.7 %; Eosinophils # (A) 0.07 10*3/uL (0.04-0.35); Eosinophils % (A) 0.8 %; HCT 42.8 % (37.2-46.3); HGB 13.9 g/dL (12.0-15.0); Lymphocytes # (A) 1.68 10*3/uL (0.90-5.00); Lymphocytes % (A) 18.5 %; MCH 28.5 pg (27.0-32.0); MCHC 32.5 g/dL (32.0-37.0); MCV 87.9 fL (80.0-97.0); Monocytes # (A) 0.61 10*3/uL (0.20-1.00); Monocytes % (A) 6.7 %; Neutrophils # (A) 6.62 10*3/uL (1.80-7.70); Neutrophils % (A) 73.0 %; Platelet Count 263 10*3/uL (140-440); RBC 4.87 10*6/uL (4.10-5.20); RDW 13.7 % (11.5-14.5); WBC 9.07 10*3/uL (4.50-10.00)
[2025-04-18 08:22] LABS: ALT 27 U/L (4-34); AST 27 U/L (14-36); African American GFR (CKD) >90 (>60 ml/min/1.73 sqM); Albumin 4.4 g/dL (3.5-5.0); Alkaline Phosphatase 46 U/L (38-126); Amylase 41 U/L (30-110); Anion Gap 9 mmol/L; Blood Urea Nitrogen 9 mg/dL (7-17); Calcium 9.4 mg/dL (8.4-10.2); Carbon Dioxide 25 mmol/L (22-30); Chloride 105 mmol/L (98-107); Glucose 148 mg/dL (74-99); Lipase 46 U/L (23-300); Non-African American GFR(CKD) >90 (>60 ml/min/1.73 sqM); Potassium 4.2 mmol/L (3.5-5.1); Sodium 139 mmol/L (137-145); Total Protein 7.0 g/dL (6.3-8.2)
--- NOTE | 2025-04-18 08:32 | CT ---
EXAMINATION TYPE: CT abdomen pelvis w con CT DLP: 1840 mGycm, Automated exposure control for dose reduction was used. DATE OF EXAM: 04/18/2025 8:23 AM COMPARISON: CT abdomen pelvis 04/25/2022 CLINICAL INDICATION:Female, 39 years old with history of RLQ abd pain; RLQ abd pain. TECHNIQUE: Standard CT of the abdomen and pelvis following the administration of 100 cc of Isovue 3 00 IV contrast material. Coronal and sagittal reformats were performed. FINDINGS: LOWER CHEST: Minimal posterior dependent subsegmental atelectasis is noted. ABDOMEN LIVER: Focal fatty infiltration adjacent to the falciform ligament in segment IVb GALLBLADDER AND BILE DUCTS: The gallbladder is surgically absent. No biliary ductal dilatation. PANCREAS: Unremarkable. SPLEEN: Unremarkable. ADRENAL GLANDS: Unremarkable. KIDNEYS AND URETERS: No evidence of hydronephrosis or renal calculus. The kidneys enhance symmetrical ly. PELVIS BLADDER: Under distended, limiting evaluation. REPRODUCTIVE: Unremarkable. ABDOMEN & PELVIS STOMACH AND BOWEL: Stomach and duodenum are unremarkable. No focal bowel wall thickening or surroundi ng inflammatory changes. The appendix is within normal limits. No evidence of bowel obstruction. PERITONEUM: No evidence of pneumoperitoneum. Trace free fluid in the pelvic cul-de-sac. Likely physio logic. VASCULATURE: No evidence of aortic aneurysm. MUSCULOSKELETAL: No acute osseous abnormalities. Moderate degenerative disc disease at L5-S1. LYMPH NODES: No evidence for lymphadenopathy. SOFT TISSUE/ABDOMINAL WALL: Unremarkable IMPRESSION: No CT evidence for acute abdominal/pelvic process. The appendix is within normal limits. [facility], , 04/18/2025 8:30 AM
[2025-04-18 08:51] LABS: Bilirubin,Urine Negative (Negative); Blood,Urine Negative (Negative); Color,Urine Yellow; Glucose,Urine (UA) Negative (Negative); Ketones,Urine Negative (Negative); Leukocyte Esterase,Urine Negative (Negative); Nitrite,Urine Negative (Negative); PH, Urine 6.0 (5.0-8.0); Protein,Urine Trace (Negative); Urobilinogen,Urine <2.0 mg/dL (<2.0)
[2025-04-18 08:53] LABS: Specific Gravity,Urine >1.050 (1.001-1.035)
--- NOTE | 2025-04-18 10:35 | US ---
EXAMINATION TYPE: US transvaginal DATE OF EXAM: 04/18/2025 COMPARISON: NONE CLINICAL INDICATION: Female, 39 years old with history of RLQ abd pain; Right sided pelvic pain x1 da y. History 2 C-sections and tubal ligation. TECHNIQUE: Transvaginal (TV) and Transabdominal (TA) . Transvaginal grayscale sonographic images of the pelvis were acquired. Transabdominal sonographic im ages were medically necessary to better assess the following anatomy: Right ovary Doppler imaging: Color Doppler Images were obtained. Spectral doppler images were obtained. FINDINGS: Date of LMP: 04/04/2025 EXAM MEASUREMENTS: Uterus: 8.7 x 5.0 x 6.1 cm Endometrial Stripe: 1.4 cm Right Ovary: 2.4 x 1.4 x 2.6 cm Left Ovary: 3.5 x 2.9 x 2.6 cm 1. Uterus: Anteverted wnl 2. Endometrium: wnl 3. Right Ovary: wnl-seen transabdominally only 4. Left Ovary: Dominant follicle measuring 1.9 x 1.8 x 1.9 cm. Spectral, color and waveform doppler imaging shows good arterial and venous flow within the ovaries ; there is no evidence for ovarian torsion. 5. Bilateral Adnexa: wnl 6. Posterior cul-de-sac: Free fluid visualized IMPRESSION: 1. No evidence for acute process. 2. Endometrium within normal limits for thickness. 3. Appropriate arterial and venous waveforms to the ovaries. [facility], , 04/18/2025 10:32 AM
[2025-04-18 11:39] VITALS: BP 128/86; PULSE 59; RESP 13
== END 2025-04-18 11:44 | disposition home or self-care (01) ==
LOC: EC 06:42
DX: R10.31 Right lower quadrant pain (principal); F17.290 Nicotine dependence, other tobacco product, uncomplicated; Z88.2 Allergy status to sulfonamides
CPT/HCPCS: 36415; 93005; 80053; 82150; 83605; 83690; 85025; 81003; 81025; 93975; 76830; 74177; 99284; 96374; 96375; 96361; J2405; J1171